=== PATIENT | female | born 1940 ===

== ENCOUNTER 2016-07-02 14:21 | Inpatient (IN) | payer MEDICARE, MEDICAID ==
--- NOTE | 2016-07-02 15:58 | CT ---
PROCEDURE: CT HEAD WITHOUT CONTRAST. HISTORY: r/o ICH COMPARISON: Comparison is made to the previous study dated 03/03/2016 TECHNIQUE: Axial computed tomography images were obtained through the head/brain without intravenous contrast. This CT exam was performed using one or more of the following dose reduction techniques: Automated exposure control, adjustment of the mA and/or kv according to patient size, and/or use of iterative reconstruction technique. Radiation dose: Total exam DLP = 719.96 mGy-cm. FINDINGS: HEMORRHAGE: No intracranial hemorrhage. BRAIN: No mass effect or edema. Mild atrophy and chronic microvascular white matter ischemic disease are again noted. VENTRICLES: Unremarkable. No hydrocephalus. CALVARIUM: Unremarkable. PARANASAL SINUSES: Unremarkable as visualized. No significant inflammatory changes. MASTOID AIR CELLS: Unremarkable as visualized. No inflammatory changes. OTHER FINDINGS: None. IMPRESSION: No evidence of acute intracranial hemorrhage intracranial mass effect or midline shift. No significant interval change compared to the previous exam.
[2016-07-02 16:04] LABS: BASO # 0.1 K/uL (0.0-0.2); BASO % 0.4 % (0.0-2.0); EOS # 0.1 K/uL (0.0-0.7); EOS % 0.4 % (0.0-4.0); HEMATOCRIT 29.7 % (34.0-47.0); LYMPH # 3.6 K/uL (1.0-4.3); LYMPH % 26.3 % (20.0-40.0); MEAN CELL VOLUME 79.7 fL (81.0-99.0); MEAN CORPUSCULAR HEMOGLOBIN 25.5 pg (27.0-31.0); MEAN PLATELET VOLUME 7.7 fL (7.2-11.7); MONO # 1.7 K/uL (0.0-0.8); MONO % 12.4 % (0.0-10.0); RED CELL DISTRIBUTION WIDTH 16.9 % (11.5-14.5); WHITE BLOOD COUNT 13.7 K/uL (4.8-10.8)
[2016-07-02 16:07] LABS: CHLORIDE 100 mmol/L (98-107); POTASSIUM 4.1 mmol/L (3.6-5.2); SODIUM 139 mmol/L (132-148)
[2016-07-02 16:09] LABS: GFR AFRICAN-AMERICAN > 60
[2016-07-02 16:10] LABS: ALB/GLOB RATIO 1.2 (1.0-2.1); ALKALINE PHOSPHATASE 83 U/L (38-126); ALT/SGPT 25 U/L (9-52); AST/SGOT 28 U/L (14-36); BILIRUBIN,TOTAL 0.5 mg/dL (0.2-1.3); BLOOD UREA NITROGEN 14 mg/dL (7-17); CARBON DIOXIDE 22 mmol/L (22-30); GLUCOSE,RANDOM 120 mg/dL (65-105); TOTAL PROTEIN 6.6 g/dL (6.3-8.3)
[2016-07-02 16:11] LABS: CALCIUM 8.6 mg/dl (8.6-10.4)
--- NOTE | 2016-07-02 17:14 | C.PDOC ---
History Of Present Illness The patient, a 76 y/o female, presents to the ED via EMS after experiencing an episode of dizziness earlier today. According to family, patient was in her fdc and was walking to the bathroom when she became dizzy and struck her head against the bathroom wall. According to family member, patient had a temperature of 102+ while she was in her fdc and an anti-pyretic was attempted to be given. Patient also also been complaining of a mild cough since yesterday. Patient denies fall to the ground, LOC, chest pain, shortness of breath, and dysuria. Information obtain via family member because patient has baseline dementia and is a poor historian. Chief Complaint (Nursing): Weakness/Neurological Deficit History Per: EMS, Family History/Exam Limitations: clinical condition (baseline dementia ), other (poor historian ) Onset/Duration Of Symptoms: Hrs Current Symptoms Are (Timing): Still Present Activity At Onset Of Symptoms: Standing Associated Symptoms Preceding Syncopal Episode: No Predromal Symptoms (Sudden Onset) Fall Associated With With Symptoms: No Injury As Result Of Fall Additional History Per: EMS, Family, Group Home Past Medical History Reviewed: Historical Data, Nursing Documentation, Vital Signs Vital Signs: Last Vital Signs Temp 99.4 F 07/02/16 18:11 Pulse 84 07/02/16 18:11 Resp 18 07/02/16 18:11 BP 111/68 07/02/16 18:11 Pulse Ox 96 07/02/16 18:16 - Medical History PMH: Anemia, Anxiety, Asthma, COPD, Deep Vein Thrombosis, HTN, Hypercholesterolemia Surgical History: Appendectomy, Cholecystectomy Family History: States: No Known Family Hx - Social History Hx Alcohol Use: No Hx Substance Use: No - Immunization History Hx Tetanus Toxoid Vaccination: No Hx Influenza Vaccination: No Hx Pneumococcal Vaccination: No Review Of Systems Except As Marked, All Systems Reviewed And Found Negative. Cardiovascular: Negative for: Chest Pain Respiratory: Positive for: Cough (mild ) Genitourinary: Negative for: Dysuria Neurological: Positive for: Dizziness. Negative for: Other (no LOC ) Physical Exam - Physical Exam Appears: Non-toxic, No Acute Distress Skin: Normal Color, Warm, Dry Head: Atraumatic, Normacephalic Eye(s): bilateral: Normal Inspection Oral Mucosa: Moist Neck: Normal ROM, Supple Chest: Symmetrical, No Deformity, No Tenderness Cardiovascular: Rhythm Regular, No Murmur Respiratory: Wheezing (mild, bilaterally ), Other (+coarse sounds in right middle lobe ) Gastrointestinal/Abdominal: Soft, No Tenderness, No Guarding, No Rebound Back: Normal Inspection, No Vertebral Tenderness, No Paraspinal Tenderness Extremity: Normal ROM, Capillary Refill (less than 2 seconds), Swelling (trace edema to b/l lower extremities ) Pulses: Left Dorsalis Pedis: Normal, Right Dorsalis Pedis: Normal Neurological/Psych: Oriented x3, Normal Speech, Normal Cognition Gait: Steady ED Course And Treatment - Laboratory Results Result Diagrams: 07/02/16 15:48 07/02/16 15:48 ECG: Interpreted By Me, Viewed By Me ECG Rhythm: Sinus Rhythm Interpretation Of ECG: Sinus Rhythm at rate 77 BPM. Normal axis and intervals. Rate From EC O2 Sat by Pulse Oximetry: 96 (on RA) Pulse Ox Interpretation: Normal - Other Rad CXR X-Ray: Interpreted by Me, Viewed By Me, Read By Radiologist Interpretation: Accession No. : [id number]. Patient Name / ID : SEAN ANGEL / [id number]. Exam Date : 07/02/2016 14:58:12 ( Approved ). Study Comment : Sex / Age : F / 76Y. Creator : Jose Cruz Mukherjee. Dictator : Jose Cruz Mukherjee. Hole Digger : Wet Roaster : Jose Cruz Mukherjee. Approver2 : Report Date : 07/02/2016 17:54:09. My Comment : . PROCEDURE: CHEST RADIOGRAPH, 1 VIEW. HISTORY: chest pain. COMPARISON: Comparison is made to the previous study dated 03/03/2016. FINDINGS: LUNGS: Focal opacity seen at the right lung base appears more conspicuous compared to the previous exam. Mild-to- moderate elevation of the right hemidiaphragm. PLEURA: No pneumothorax or pleural fluid seen. CARDIOVASCULAR: Normal. OSSEOUS STRUCTURES: No significant abnormalities. VISUALIZED UPPER ABDOMEN: Normal. OTHER FINDINGS: None. IMPRESSION: Focal opacity at the right lung base. Elevation of the right hemidiaphragm. If clinically warranted further assessment by CT may be obtained. - CT Scan/US CT Head Other Rad Studies (CT/US): Interpreted By Me, Read By Radiologist, Radiology Report Reviewed CT/US Interpretation: Accession No. : [id number]. Patient Name / ID : SEAN ANGEL / [id number]. Exam Date : 07/02/2016 15:42:52 ( Approved ). Study Comment : Sex / Age : F / 76Y. Creator : Jose Cruz Mukherjee. Dictator : Jose Cruz Mukherjee. Hole Digger : Wet Roaster : Jose Cruz Mukherjee. Approver2 : Report Date : 07/02/2016 15:57:24. My Comment : . PROCEDURE: CT HEAD WITHOUT CONTRAST. HISTORY: r/o ICH. COMPARISON: Comparison is made to the previous study dated 03/03/2016. TECHNIQUE: Axial computed tomography images were obtained through the head/brain without intravenous contrast. This CT exam was performed using one or more of the following dose reduction techniques : Automated exposure control, adjustment of the mA and/or kv according to patient size, and/or use of iterative reconstruction technique. Radiation dose : Total exam DLP = 719.96 mGy-cm. FINDINGS: HEMORRHAGE: No intracranial hemorrhage. BRAIN: No mass effect or edema. Mild atrophy and chronic microvascular white matter ischemic disease are again noted. VENTRICLES: Unremarkable. No hydrocephalus. CALVARIUM: Unremarkable. PARANASAL SINUSES: Unremarkable as visualized. No significant inflammatory changes. MASTOID AIR CELLS: Unremarkable as visualized. No inflammatory changes. OTHER FINDINGS: None. IMPRESSION: No evidence of acute intracranial hemorrhage intracranial mass effect or midline shift. No significant interval change compared to the previous exam. Progress Note: labs, CT Head, EKG, and CXR were ordered and reviewed. Medical Decision Making Medical Decision Making: Impression: 76 y/o female with dizziness Differential Diagnosis includes but is not limited to: near-syncope vs possible pneumonia Plan: * labs * CT Head * CXR * EKG * reassess and disposition Progress Notes: labs, CT Head, EKG, and CXR were ordered and reviewed. 17:[address] Clark. Disposition - Disposition Disposition: HOSPITALIZED Disposition Time: 17:30 Condition: FAIR - Clinical Impression Clinical Impression: Pre-syncope, Pneumonia - Scribe Statement The provider has reviewed the documentation as recorded by the Scribe (Brenna Land) Provider Attestation: All medical record entries made by the Scribe were at my direction and personally dictated by me. I have reviewed the chart and agree that the record accurately reflects my personal performance of the history, physical exam, medical decision making, and the department course for this patient. I have also personally directed, reviewed, and agree with the discharge instructions and disposition.
[2016-07-02 17:31] LABS: RBC URINE 2 /hpf (0-3); URINE BACTERIA MANY (<OCC); URINE BILIRUBIN NEGATIVE (NEGATIVE); URINE BLOOD NEGATIVE (NEGATIVE); URINE COLOR Yellow (YELLOW); URINE GLUCOSE (UA) NORMAL (Normal); URINE KETONE NEGATIVE (NEGATIVE); URINE LEUKOCYTE ESTERASE TRACE Leu/uL (Negative); URINE PROTEIN 1+ mg/dL (NEGATIVE); URINE UROBILINOGEN NORMAL mg/dL (0.2-1.0); WBC URINE 8 /hpf (0-5)
[2016-07-02] MEDS ORDERED: Piperacillin/Tazobact 3.375 GM in Sodium Chloride 100 ML IVPB STA (17:31)
--- NOTE | 2016-07-02 17:55 | RAD ---
PROCEDURE: CHEST RADIOGRAPH, 1 VIEW HISTORY: chest pain COMPARISON: Comparison is made to the previous study dated 03/03/2016 FINDINGS: LUNGS: Focal opacity seen at the right lung base appears more conspicuous compared to the previous exam. [id number] elevation of the right hemidiaphragm. PLEURA: No pneumothorax or pleural fluid seen. CARDIOVASCULAR: Normal. OSSEOUS STRUCTURES: No significant abnormalities. VISUALIZED UPPER ABDOMEN: Normal. OTHER FINDINGS: None. IMPRESSION: Focal opacity at the right lung base. Elevation of the right hemidiaphragm. If clinically warranted further assessment by CT may be obtained.
[2016-07-02 18:11] LABS: ABG ALLEN TEST POS; DRAW SITE RRA
--- NOTE | 2016-07-02 18:42 | CP.PCM.HP ---
<Axel Jon - Last Filed: 07/02/16 19:41> History of Present Illness - History of Present Illness History of Present Illness: CC: Dizzy and Fell" HPI: Patient is a 76 year old Yakut speaking patient with a history of HTN, COPD, HTN, and DM comes to the ED after falling and hitting her on the wall. Patient was interviewed through a paint factory worker. She was going to the bathroom when she felt dizzy and hit her head on the side of the wall. She has been complaining of worsening productive cough with green sputum, fever, chills, and chest pain. She says she has been having chronic chest pain for many years but that over the past few days she has been having chest congestion and cough with fever and chills. Patient comes from a alf and according to her daughter is able to ambulate on her own with assistance. She denies changes in vision, hearing, nausea, vomiting, diarrhea, dysuria, palpitations, shortness of breath, lower extremity swelling but admits o chronic joint pain. PMH: see above PSH: appendectomy, cholestectomy PFH: patient denies SH: Lives at [facility], former smoker, denies etoh, or illicit drug use. Allergies: NKDA PMD: Frank Present on Admission - Present on Admission Any Indicators Present on Admission: No History of DVT/PE: Yes History of Uncontrolled Diabetes: No Urinary Catheter: No Decubitus Ulcer Present: No Review of Systems - Review of Systems All systems: reviewed and no additional remarkable complaints except - Constitutional Constitutional: Chills, Fever - EENT Eyes: absent: Change in Vision Ears: Disequilibrium, Dizziness - Cardiovascular Cardiovascular: Chest Pain (reproducible with palpation), Dyspnea. absent: Palpitations - Respiratory Respiratory: Cough, Dyspnea, Chest Congestion, Pain with Coughing. absent: Wheezing - Gastrointestinal Gastrointestinal: absent: Abdominal Pain, Constipation, Diarrhea, Vomiting - Genitourinary Genitourinary: absent: Dysuria - Musculoskeletal Musculoskeletal: absent: Numbness, Tingling - Integumentary Integumentary: absent: Swelling - Neurological Neurological: Disequilibrium, Dizziness, Syncope, Vertigo. absent: Numbness, Focal Weakness, Headaches - Psychiatric Psychiatric: absent: Anxiety - Endocrine Endocrine: absent: Fatigue, Palpitations Past Patient History - Infectious Disease Hx of Infectious Diseases: None - Past Medical History & Family History Past Medical History?: Yes - Past Social History Smoking Status: Never Smoked - CARDIAC Hx Hypercholesterolemia: Yes Hx Hypertension: Yes - PULMONARY Hx Asthma: Yes Hx Chronic Obstructive Pulmonary Disease (COPD): Yes - NEUROLOGICAL Hx Dizziness: Yes - ENDOCRINE/METABOLIC Hx Diabetes Mellitus Type 2: Yes - HEMATOLOGICAL/ONCOLOGICAL Hx Anemia: Yes - MUSCULOSKELETAL/RHEUMATOLOGICAL Hx Falls: Yes Hx Gout: Yes Other/Comment: hx of stress fracture. - GASTROINTESTINAL Hx Gastroesophageal Reflux: Yes - PSYCHIATRIC Hx Anxiety: Yes Hx Substance Use: No - SURGICAL HISTORY Hx Appendectomy: Yes Hx Cholecystectomy: Yes - ANESTHESIA Hx Anesthesia: Yes Hx Anesthesia Reactions: No Hx Malignant Hyperthermia: No Meds Allergies/Adverse Reactions: Allergies Allergy/AdvReac Type Severity Reaction Status Date / Time No Known Allergies Allergy Unverified 03/03/16 02:28 Physical Exam - Constitutional Appears: Non-toxic, No Acute Distress - Head Exam Head Exam: ATRAUMATIC, NORMAL INSPECTION, NORMOCEPHALIC - Eye Exam Eye Exam: Normal appearance, PERRL Pupil Exam: NORMAL ACCOMODATION - ENT Exam ENT Exam: Normal Exam - Neck Exam Neck exam: Positive for: Normal Inspection - Respiratory Exam Respiratory Exam: Clear to Auscultation Bilateral, Rales. absent: Rhonchi, Wheezes - Cardiovascular Exam Cardiovascular Exam: REGULAR RHYTHM, RRR, +S1, +S2. absent: Gallop, Rubs - GI/Abdominal Exam GI & Abdominal Exam: Normal Bowel Sounds. absent: Guarding, Soft, Tenderness - Extremities Exam Extremities exam: Positive for: normal inspection - Back Exam Back exam: NORMAL INSPECTION - Psychiatric Exam Psychiatric exam: Normal Affect, Normal Mood - Skin Skin Exam: Normal Color, Warm Results - Vital Signs Recent Vital Signs: Last Vital Signs Temp 99.4 F 07/02/16 18:11 Pulse 84 07/02/16 18:11 Resp 18 07/02/16 18:11 BP 111/68 07/02/16 18:11 Pulse Ox 96 07/02/16 18:16 - Labs Result Diagrams: 07/02/16 15:48 07/02/16 15:48 Labs: Laboratory Results - last 24 hr 07/02/16 18:05 Puncture Site Rra pCO2 31 L pO2 82 HCO3 25.2 ABG pH 7.48 H ABG Total CO2 24.1 ABG O2 Saturation 98.6 H ABG Base Excess 0.4 Jhon Test Pos ABG Potassium 3.5 L A-a O2 Difference 29.0 Respiratory Index 0.4 Sodium 140.0 Chloride 113.0 H Glucose 133 H Lactate 0.5 L FiO2 21.0 Arterial Blood Potassium 3.5 L Assessment & Plan (1) Pneumonia Assessment and Plan: CXR in the ED shows a right focal opacity see emr for full read on x:ray. She also has Luecocytosis WBC of 14.7 with left shift no bandemia. Patient admitted to tele/inpatient She received Zosyn and Vanc in the ED, will continue Vanc 1 gram q12 and Zoysn 3.375gm Q5H IVPB. Dr. Jasmine consulted for ID, she was notified of the consult and will need to follow up on her recommendations or orders. Blood, urine, and sputum culture will need to be followe up on. Duoneb 3ml with Mucomyst every q6h, continue home Singular 10mg HS. Status: Acute (2) Near syncope Assessment and Plan: CT of the head is negative, patient put on fall precuations. Status: Acute (3) CHF (congestive heart failure) Assessment and Plan: Patient's BNP is elevated, will order Echo. Lasix 20mg IVP daily. I& monitor continuos, daily weight measurement Status: Suspected (4) Diabetes mellitus Assessment and Plan: Accuc checks ACHS with sliding scale medium protocol ordered. Status: Chronic (5) Hyperlipidemia Assessment and Plan: Crestor 10mg HS, followup lipid panel. Status: Chronic (6) History of DVT of lower extremity Assessment and Plan: Accoring to the records from the alf and patient's daughter patient at one time was one Xarelto for DVT however she is not Xarelto currently. Neither staff at alf or daughter knows why she was taken off Xarelto. Ordered lower extremity doppler. Status: Chronic (7) HTN (hypertension) Assessment and Plan: Coreg 25mg bid. Status: Acute (8) Prophylactic measure Assessment and Plan: Pepcid 20mg bid and Heparin 5000 units SC q8h Hold SCDs due to history of DVTs. Status: Acute <Charles Cox M - Last Filed: 07/06/16 14:41> Results - Vital Signs Recent Vital Signs: Last Vital Signs Temp 98.1 F 07/06/16 11:00 Pulse 63 07/06/16 11:00 Resp 20 07/06/16 11:00 BP 119/66 07/06/16 11:00 Pulse Ox 98 07/06/16 11:00 - Labs Result Diagrams: 07/06/16 07:51 07/06/16 07:51 Labs: Laboratory Results - last 24 hr 07/05/16 07/05/16 07/06/16 16:23 20:59 06:14 WBC RBC Hgb Hct MCV MCH MCHC RDW Plt Count MPV Neut % (Auto) Lymph % (Auto) [place] % (Auto) Eos % (Auto) Baso % (Auto) Neut # Lymph # [place] # Eos # Baso # PT INR Sodium Potassium Chloride Carbon Dioxide Anion Gap BUN Creatinine Est GFR ( Amer) Est GFR (Non-Af Amer) POC Glucose (mg/dL) 97 148 H 117 H Random Glucose Calcium Phosphorus Magnesium Total Bilirubin AST ALT Alkaline Phosphatase Total Protein Albumin Globulin Albumin/Globulin Ratio 07/06/16 07/06/16 07:51 11:57 WBC 7.0 RBC 3.78 L Hgb 9.9 L Hct 29.8 L MCV 78.9 L MCH 26.2 L MCHC 33.3 RDW 16.5 H Plt Count 326 MPV 7.8 Neut % (Auto) 41.4 L Lymph % (Auto) 43.8 H [place] % (Auto) 10.3 H Eos % (Auto) 4.1 H Baso % (Auto) 0.4 Neut # 2.9 Lymph # 3.1 [place] # 0.7 Eos # 0.3 Baso # 0.0 PT 13.6 H INR 1.2 Sodium 142 Potassium 3.8 Chloride 102 Carbon Dioxide 22 Anion Gap 21 H BUN 13 Creatinine 1.3 H Est GFR ( Amer) 48 Est GFR (Non-Af Amer) 40 POC Glucose (mg/dL) 145 H Random Glucose 125 H Calcium 8.9 Phosphorus 3.9 Magnesium 2.0 Total Bilirubin 0.7 AST 36 ALT 33 Alkaline Phosphatase 84 Total Protein 7.4 Albumin 4.0 Globulin 3.3 Albumin/Globulin Ratio 1.2 Attending/Attestation - Attestation I have personally seen and examined this patient.: Yes I have fully participated in the care of the patient.: Yes I have reviewed all pertinent clinical information: Yes Notes (Text): 07/06/16 14:41 Patient was seen and examined at bedside with the resident This is a late computer entry Patient will be admitted for near-syncope Rule out underlying infectious etiology I discussed the plan of care with the resident and agree with the above history and physical and assessment/plan by the resident.
[2016-07-02] MEDS: Sodium Chloride 0.9% 1,000 ML IV SCH (19:00)
[2016-07-02] MEDS: Albuterol-Ipratrop 3 mg / 0.5 (3 ml) UD INH SCH (20:50)
[2016-07-02] MEDS: Acetylcysteine 20% Inhal Soln (4ml) INH SCH (20:50)
[2016-07-02] MEDS ORDERED: Vancomycin 1 gm/NS 200 ml 200 ML IVPB SCH (21:00)
[2016-07-02] MEDS: (Novolin R) Insulin Human Regular 100 units/ml vial SC SCH (22:00)
[2016-07-03] MEDS: Piperacill/Tazo 3.375gm in Dex 50 ML IVPB SCH ×4 (00:52→17:22)
[2016-07-03] MEDS: Sodium Chloride 0.9% 1,000 ML IV SCH ×2 (01:45→15:05)
[2016-07-03] MEDS: Albuterol-Ipratrop 3 mg / 0.5 (3 ml) UD INH SCH ×4 (01:57→19:21)
[2016-07-03] MEDS: Acetylcysteine 20% Inhal Soln (4ml) INH SCH ×4 (01:57→19:21)
[2016-07-03] MEDS ORDERED: Vancomycin 1 gm/NS 200 ml 200 ML IVPB SCH (05:30)
[2016-07-03 07:14] LABS: BASO % 0.4 % (0.0-2.0); EOS # 0.1 K/uL (0.0-0.7); EOS % 1.3 % (0.0-4.0); HEMATOCRIT 27.4 % (34.0-47.0); LYMPH # 2.3 K/uL (1.0-4.3); LYMPH % 24.7 % (20.0-40.0); MEAN CELL VOLUME 80.6 fL (81.0-99.0); MEAN CORPUSCULAR HEMOGLOBIN 26.3 pg (27.0-31.0); MEAN CORPUSCULAR HGB CONC 32.6 g/dL (33.0-37.0); MEAN PLATELET VOLUME 7.7 fL (7.2-11.7); MONO # 1.1 K/uL (0.0-0.8); MONO % 11.4 % (0.0-10.0); RED CELL DISTRIBUTION WIDTH 16.8 % (11.5-14.5); WHITE BLOOD COUNT 9.3 K/uL (4.8-10.8)
[2016-07-03 07:35] LABS: CHLORIDE 106 mmol/L (98-107); POTASSIUM 3.2 mmol/L (3.6-5.2); SODIUM 139 mmol/L (132-148)
[2016-07-03 07:37] LABS: AST/SGOT 20 U/L (14-36); BILIRUBIN,TOTAL 0.4 mg/dL (0.2-1.3); CARBON DIOXIDE 22 mmol/L (22-30); CHOLESTEROL 65 mg/dL (0-199); GFR AFRICAN-AMERICAN > 60; TOTAL PROTEIN 5.4 g/dL (6.3-8.3)
[2016-07-03 07:38] LABS: ALKALINE PHOSPHATASE 65 U/L (38-126); ALT/SGPT 22 U/L (9-52); BLOOD UREA NITROGEN 12 mg/dL (7-17); CALCIUM 7.4 mg/dl (8.6-10.4); GLUCOSE,RANDOM 101 mg/dL (65-105)
[2016-07-03] MEDS: (Novolin R) Insulin Human Regular 100 units/ml vial SC SCH ×4 (07:59→22:12)
--- NOTE | 2016-07-03 09:16 | CP.PCM.PN ---
<Yeyo Diez - Last Filed: 07/03/16 20:43> Subjective - Date & Time of Evaluation Date of Evaluation: 07/03/16 Time of Evaluation: 07:50 - Subjective Subjective: PGY1 Medicine Note Patient seen and examined at bedside. Patient with mild temperature overnight. Will monitor. Currently denies changes in vision, hearing, nausea, vomiting, diarrhea, dysuria, palpitations, shortness of breath, or lower extremity swelling. Admits to chronic joint pain. Objective - Vital Signs/Intake and Output Vital Signs (last 24 hours): Temp Pulse Resp BP Pulse Ox 100 F H 75 18 110/41 L 97 07/03/16 07:20 07/03/16 08:51 07/03/16 07:20 07/03/16 07:20 07/03/16 07:20 - Medications Medications: Current Medications Acetaminophen (Tylenol 325mg Tab) 650 mg PO Q6 PRN PRN Reason: Pain, severe (8-10) Acetylcysteine (Acetylcysteine 20%) 4 ml INH RQ6 [facility] Last Admin: 07/03/16 07:56 Dose: Not Given Albuterol/Ipratropium (Duoneb 3 Mg/0.5 Mg (3 Ml) Ud) 3 ml INH RQ6 [facility] Last Admin: 07/03/16 07:57 Dose: Not Given Carvedilol (Coreg) 25 mg PO BID [facility] Last Admin: 07/02/16 18:50 Dose: 25 mg Docusate Sodium (Colace) 100 mg PO BID PRN PRN Reason: Constipation Furosemide (Lasix) 20 mg IVP DAILY [facility] Heparin Sodium (Porcine) (Heparin) 5,000 units SC Q8 [facility] Last Admin: 07/03/16 06:21 Dose: 5,000 units Sodium Chloride (Sodium Chloride 0.9%) 1,000 mls @ 125 mls/hr IV .Q8H [facility] Last Admin: 07/03/16 01:45 Dose: Not Given Piperacillin Sod/Tazobactam Sod (Zosyn 3.375 Gm Iv Premix) 50 mls @ 100 mls/hr IVPB Q6H [facility] Last Admin: 07/03/16 06:24 Dose: 100 mls/hr Azithromycin 500 mg/ Sodium (Chloride) 250 mls @ 167 mls/hr IVPB Q24H [facility] Insulin Human Regular (Novolin R) 0 unit SC ACHS [facility] PRN Reason: Protocol Last Admin: 07/03/16 07:59 Dose: Not Given Montelukast Sodium (Singulair) 10 mg PO HS [facility] Last Admin: 07/02/16 22:31 Dose: 10 mg Pantoprazole Sodium (Protonix Ec Tab) 40 mg PO DAILY [facility] Potassium Chloride (K-Dur 20 Meq Er Tab) 40 meq PO Q5H [facility] Stop: 07/03/16 14:01 Rosuvastatin Calcium (Crestor) 10 mg PO HS [facility] Last Admin: 07/02/16 22:30 Dose: 10 mg - Labs Labs: 07/03/16 06:46 07/03/16 06:46 - Additional Findings Additional findings: - Constitutional Appears: Non-toxic, No Acute Distress - Head Exam Head Exam: ATRAUMATIC, NORMAL INSPECTION, NORMOCEPHALIC - Eye Exam Eye Exam: Normal appearance, PERRL Pupil Exam: NORMAL ACCOMODATION - ENT Exam ENT Exam: Normal Exam - Neck Exam Neck exam: Positive for: Normal Inspection - Respiratory Exam Respiratory Exam: Clear to Auscultation Bilateral, Rales. absent: Rhonchi, Wheezes - Cardiovascular Exam Cardiovascular Exam: REGULAR RHYTHM, RRR, +S1, +S2. absent: Gallop, Rubs - GI/Abdominal Exam GI & Abdominal Exam: Normal Bowel Sounds. absent: Guarding, Soft, Tenderness - Extremities Exam Extremities exam: Positive for: normal inspection - Back Exam Back exam: NORMAL INSPECTION - Psychiatric Exam Psychiatric exam: Normal Affect, Normal Mood - Skin Skin Exam: Normal Color, Warm Assessment and Plan - Assessment and Plan (Free Text) Assessment: (1) Pneumonia Assessment and Plan: 07/03: f/u Chest CT (pending read) 4/3: repeat CXR shows elevated right hemidiaphragm. -CXR in the ED shows a right focal opacity see emr for full read on x:ray She also has Luecocytosis WBC of 14.7 with left shift no bandemia. Patient admitted to tele/inpatient She received Zosyn and Vanc in the ED, will continue Vanc 1 gram q12 and Zoysn 3.375gm Q5H IVPB. Dr. Jasmine consulted for ID, she was notified of the consult and will need to follow up on her recommendations or orders. Blood, urine, and sputum culture will need to be followe up on. Duoneb 3ml with Mucomyst every q6h, continue home Singular 10mg HS. Status: Acute (2) Near syncope Assessment and Plan: CT of the head is negative, patient put on fall precuations. Status: Acute (3) CHF (congestive heart failure) Assessment and Plan: 07/03: f/u Echo, pending read Patient's BNP is elevated, will order Echo. Lasix 20mg IVP daily. I& monitor continuos, daily weight measurement Status: Suspected (4) Diabetes mellitus Assessment and Plan: Accuc checks ACHS with sliding scale medium protocol ordered. Status: Chronic (5) Hyperlipidemia Assessment and Plan: 07/03: Triglyc 86; Cholest 65; LDL <30; HDL 23 L Crestor 10mg HS, followup lipid panel. Status: Chronic (6) History of DVT of lower extremity Assessment and Plan: 07/03: f/u LE duplex (pending read) Accoring to the records from the correction and patient's daughter patient at one time was one Xarelto for DVT however she is not Xarelto currently. Neither staff at correction or daughter knows why she was taken off Xarelto. Status: Chronic (7) HTN (hypertension) Assessment and Plan: Coreg 25mg bid. Status: Acute (8) Prophylactic measure Assessment and Plan: Pepcid 20mg bid and Heparin 5000 units SC q8h Hold SCDs due to history of DVTs. Status: Acute <Yeyo Hendrickson - Last Filed: 07/04/16 07:47> Objective - Vital Signs/Intake and Output Vital Signs (last 24 hours): Temp Pulse Resp BP Pulse Ox 98 F 73 20 129/66 96 07/04/16 05:30 07/04/16 05:30 07/04/16 05:30 07/04/16 05:30 07/04/16 05:30 Intake and Output: 07/04/16 07/04/16 06:59 18:59 Intake Total 1000 Balance 1000 - Medications Medications: Current Medications Acetaminophen (Tylenol 325mg Tab) 650 mg PO Q6 PRN PRN Reason: Pain, severe (8-10) Last Admin: 07/04/16 05:45 Dose: 650 mg Acetylcysteine (Acetylcysteine 20%) 4 ml INH RQ6 [facility] Last Admin: 07/04/16 01:23 Dose: Not Given Albuterol/Ipratropium (Duoneb 3 Mg/0.5 Mg (3 Ml) Ud) 3 ml INH RQ6 [facility] Last Admin: 07/04/16 01:23 Dose: Not Given Carvedilol (Coreg) 25 mg PO BID [facility] Last Admin: 07/03/16 17:21 Dose: 25 mg Docusate Sodium (Colace) 100 mg PO BID PRN PRN Reason: Constipation Furosemide (Lasix) 20 mg IVP DAILY [facility] Last Admin: 07/03/16 11:21 Dose: 20 mg Guaifenesin (Robitussin) 100 mg PO Q6H PRN PRN Reason: Cough Last Admin: 07/03/16 22:12 Dose: 100 mg Heparin Sodium (Porcine) (Heparin) 5,000 units SC Q8 [facility] Last Admin: 07/04/16 05:46 Dose: 5,000 units Piperacillin Sod/Tazobactam Sod (Zosyn 3.375 Gm Iv Premix) 50 mls @ 100 mls/hr IVPB Q6H [facility] Last Admin: 07/04/16 05:46 Dose: 100 mls/hr Azithromycin 500 mg/ Sodium (Chloride) 250 mls @ 167 mls/hr IVPB Q24H [facility] Last Admin: 07/03/16 11:22 Dose: 167 mls/hr Sodium Chloride (Sodium Chloride 0.9%) 1,000 mls @ 50 mls/hr IV .Q20H [facility] Last Admin: 07/03/16 16:00 Dose: 50 mls/hr Insulin Human Regular (Novolin R) 0 unit SC ACHS [facility] PRN Reason: Protocol Last Admin: 07/03/16 22:12 Dose: Not Given Montelukast Sodium (Singulair) 10 mg PO HS [facility] Last Admin: 07/03/16 22:11 Dose: 10 mg Oseltamivir Phosphate (Tamiflu Cap) 75 mg PO BID [facility] Stop: 07/08/16 23:04 Pantoprazole Sodium (Protonix Ec Tab) 40 mg PO DAILY [facility] Last Admin: 07/03/16 11:20 Dose: 40 mg Rosuvastatin Calcium (Crestor) 10 mg PO HS [facility] Last Admin: 07/03/16 22:11 Dose: 10 mg - Labs Labs: 07/03/16 06:46 07/03/16 06:46 Attending/Attestation - Attestation I have personally seen and examined this patient.: Yes I have fully participated in the care of the patient.: Yes I have reviewed all pertinent clinical information, including history, physical exam and plan: Yes Notes (Text): 07/04/16 07:45 Medical Attending: Jesse was seen and examined by me. She was sleeping but woke up and was cooperative during the the exam. Agree with the above note by the resident. Reviewed the CXRAY, there is a persistent mass on the right lower lobe almost as if sitting ontop the diaghram. This maybe infectious etiology such as pneumonia since her WBC is decreasing with abx being given. Will check CT of the chest without contrast. thank you Yeyo Hendrickson
[2016-07-03] MEDS: Pantoprazole 40 mg EC Tab PO SCH (11:20)
[2016-07-03] MEDS: Potassium Chloride 20 mEq ER Tab PO SCH ×2 (11:21→15:05)
[2016-07-03] MEDS: Azithromycin 500 MG in Sodium Chloride 0.9% 250 ML IVPB SCH (11:22)
--- NOTE | 2016-07-03 12:48 | RAD ---
HISTORY: congestion COMPARISON: 07/02/2016 FINDINGS: LUNGS: Opacity at right base, possible atelectasis versus infiltrate. No significant change. PLEURA: Markedly elevated right hemidiaphragm, unchanged. Hazy opacity at right costophrenic angle may reflect pleural effusion. No left pleural effusion. CARDIOVASCULAR: Normal. OSSEOUS STRUCTURES: No significant abnormalities. VISUALIZED UPPER ABDOMEN: Normal. OTHER FINDINGS: None. IMPRESSION: Elevated right hemidiaphragm. Possible atelectasis versus infiltrate at right base, S cephalad to elevated hemidiaphragm. Possible small right pleural effusion.
--- NOTE | 2016-07-03 15:46 | CP.PCM.CON ---
History of Present Illness - History of Present Illness History of Present Illness: dictated Past Patient History - Infectious Disease Hx of Infectious Diseases: None - Past Medical History & Family History Past Medical History?: Yes - Past Social History Smoking Status: Never Smoked - CARDIAC Hx Hypercholesterolemia: Yes Hx Hypertension: Yes - PULMONARY Hx Asthma: Yes Hx Chronic Obstructive Pulmonary Disease (COPD): Yes - NEUROLOGICAL Hx Dizziness: Yes - HEENT Hx HEENT Problems: No - RENAL Hx Chronic Kidney Disease: No - ENDOCRINE/METABOLIC Hx Diabetes Mellitus Type 2: Yes - HEMATOLOGICAL/ONCOLOGICAL Hx Anemia: Yes - INTEGUMENTARY Hx Dermatological Problems: No - MUSCULOSKELETAL/RHEUMATOLOGICAL Hx Falls: Yes Hx Gout: Yes Other/Comment: hx of stress fracture. - GASTROINTESTINAL Hx Gastroesophageal Reflux: Yes - GENITOURINARY/GYNECOLOGICAL Hx Genitourinary Disorders: No - PSYCHIATRIC Hx Anxiety: Yes Hx Substance Use: No - SURGICAL HISTORY Hx Appendectomy: Yes Hx Cholecystectomy: Yes - ANESTHESIA Hx Anesthesia: Yes Hx Anesthesia Reactions: No Hx Malignant Hyperthermia: No Meds Allergies/Adverse Reactions: Allergies Allergy/AdvReac Type Severity Reaction Status Date / Time No Known Allergies Allergy Unverified 03/03/16 02:28 - Medications Medications: Current Medications Acetaminophen (Tylenol 325mg Tab) 650 mg PO Q6 PRN PRN Reason: Pain, severe (8-10) Acetylcysteine (Acetylcysteine 20%) 4 ml INH RQ6 [facility] Last Admin: 07/03/16 14:22 Dose: Not Given Albuterol/Ipratropium (Duoneb 3 Mg/0.5 Mg (3 Ml) Ud) 3 ml INH RQ6 [facility] Last Admin: 07/03/16 14:22 Dose: Not Given Carvedilol (Coreg) 25 mg PO BID [facility] Last Admin: 07/03/16 11:21 Dose: 25 mg Docusate Sodium (Colace) 100 mg PO BID PRN PRN Reason: Constipation Furosemide (Lasix) 20 mg IVP DAILY [facility] Last Admin: 07/03/16 11:21 Dose: 20 mg Heparin Sodium (Porcine) (Heparin) 5,000 units SC Q8 [facility] Last Admin: 07/03/16 14:46 Dose: 5,000 units Sodium Chloride (Sodium Chloride 0.9%) 1,000 mls @ 125 mls/hr IV .Q8H [facility] Last Admin: 07/03/16 15:05 Dose: 125 mls/hr Piperacillin Sod/Tazobactam Sod (Zosyn 3.375 Gm Iv Premix) 50 mls @ 100 mls/hr IVPB Q6H [facility] Last Admin: 07/03/16 14:46 Dose: 100 mls/hr Azithromycin 500 mg/ Sodium (Chloride) 250 mls @ 167 mls/hr IVPB Q24H [facility] Last Admin: 07/03/16 11:22 Dose: 167 mls/hr Insulin Human Regular (Novolin R) 0 unit SC ACHS [facility] PRN Reason: Protocol Last Admin: 07/03/16 12:08 Dose: Not Given Montelukast Sodium (Singulair) 10 mg PO HS [facility] Last Admin: 07/02/16 22:31 Dose: 10 mg Pantoprazole Sodium (Protonix Ec Tab) 40 mg PO DAILY [facility] Last Admin: 07/03/16 11:20 Dose: 40 mg Potassium Chloride (Potassium Chloride Oral Soln) 40 meq PO ONCE ONE Stop: 07/03/16 18:01 Rosuvastatin Calcium (Crestor) 10 mg PO [facility] Last Admin: 07/02/16 22:30 Dose: 10 mg Results - Vital Signs Recent Vital Signs: Last Vital Signs Temp 100 F H 07/03/16 07:20 Pulse 75 07/03/16 08:51 Resp 18 07/03/16 07:20 BP 107/59 L 07/03/16 11:21 Pulse Ox 97 07/03/16 07:20 - Labs Result Diagrams: 07/03/16 06:46 07/03/16 06:46 Labs: Laboratory Results - last 24 hr 07/02/16 07/02/16 07/03/16 18:05 21:09 06:00 WBC RBC Hgb Hct MCV MCH MCHC RDW Plt Count MPV Neut % (Auto) Lymph % (Auto) [place] % (Auto) Eos % (Auto) Baso % (Auto) Neut # Lymph # [place] # Eos # Baso # Puncture Site Rra pCO2 31 L pO2 82 HCO3 25.2 ABG pH 7.48 H ABG Total CO2 24.1 ABG O2 Saturation 98.6 H ABG Base Excess 0.4 Jhon Test Pos ABG Potassium 3.5 L A-a O2 Difference 29.0 Respiratory Index 0.4 Sodium 140.0 Chloride 113.0 H Glucose 133 H Lactate 0.5 L FiO2 21.0 Potassium Carbon Dioxide Anion Gap BUN Creatinine Est GFR ( Amer) Est GFR (Non-Af Amer) POC Glucose (mg/dL) 132 H Random Glucose Hemoglobin A1c Calcium Total Bilirubin AST ALT Alkaline Phosphatase Total Protein Albumin Globulin Albumin/Globulin Ratio Triglycerides Cholesterol LDL Cholesterol Direct HDL Cholesterol Free T4 TSH 3rd Generation Arterial Blood Potassium 3.5 L Ur L.pneumophila Ag Negative Mycoplasma pneumon IgM 07/03/16 07/03/16 07/03/16 06:46 07:46 11:24 WBC 9.3 RBC 3.40 L Hgb 8.9 L Hct 27.4 L MCV 80.6 L MCH 26.3 L MCHC 32.6 L RDW 16.8 H Plt Count 250 MPV 7.7 Neut % (Auto) 62.2 Lymph % (Auto) 24.7 [place] % (Auto) 11.4 H Eos % (Auto) 1.3 Baso % (Auto) 0.4 Neut # 5.8 Lymph # 2.3 [place] # 1.1 H Eos # 0.1 Baso # 0.0 Puncture Site pCO2 pO2 HCO3 ABG pH ABG Total CO2 ABG O2 Saturation ABG Base Excess Jhon Test ABG Potassium A-a O2 Difference Respiratory Index Sodium 139 Chloride 106 Glucose Lactate FiO2 Potassium 3.2 L Carbon Dioxide 22 Anion Gap 14 BUN 12 Creatinine 1.0 Est GFR ( Amer) > 60 Est GFR (Non-Af Amer) 54 POC Glucose (mg/dL) 130 H 148 H Random Glucose 101 Hemoglobin A1c 6.6 H Calcium 7.4 L Total Bilirubin 0.4 AST 20 ALT 22 Alkaline Phosphatase 65 Total Protein 5.4 L Albumin 2.7 L D Globulin 2.7 Albumin/Globulin Ratio 1.0 Triglycerides 86 Cholesterol 65 LDL Cholesterol Direct < 30 HDL Cholesterol 23 L Free T4 0.97 TSH 3rd Generation 1.20 Arterial Blood Potassium Ur L.pneumophila Ag Mycoplasma pneumon IgM Negative
[2016-07-03] MEDS ORDERED: Sodium Chloride 0.9% 1,000 ML IV SCH (15:50)
[2016-07-03] MEDS ORDERED: Potassium Chloride 20 mEq/15 ml LIQ UD PO ONE (18:00)
[2016-07-03] MEDS: guaiFENesin 100 mg/5 ml Syrup UD PO PRN (22:12)
--- NOTE | 2016-07-03 23:17 | CARD ---
APPROVED REPORT EKG Measurement Heart [id number] <Conclusion> Sinus rhythm with occasional atrial-paced complexes T wave abnormality, consider anterior ischemia Abnormal ECG
[2016-07-04] MEDS: Piperacill/Tazo 3.375gm in Dex 50 ML IVPB SCH ×4 (00:08→17:11)
[2016-07-04] MEDS: Albuterol-Ipratrop 3 mg / 0.5 (3 ml) UD INH SCH ×3 (01:23→19:43)
[2016-07-04] MEDS: Acetylcysteine 20% Inhal Soln (4ml) INH SCH ×4 (01:23→19:43)
[2016-07-04] MEDS: (Novolin R) Insulin Human Regular 100 units/ml vial SC SCH ×4 (07:30→21:28)
--- NOTE | 2016-07-04 07:52 | CARD ---
APPROVED REPORT EXAM: Two-dimensional and M-mode echocardiogram with Doppler and color Doppler. Other Information Quality : FairRhythm : NSR INDICATION Acute AR Dyspnea Syncope Congestive Heart Failure RISK FACTORS Hypertension Hyperlipidemia Diabetes M-Mode DIMENSIONS RVDd1.21 (2.1-3.2cm)Left Atrium (MM)3.87 (2.5-4.0cm) IVSd1.56 (0.7-1.1cm)Aortic Root2.42 (2.2-3.7cm) LVDd6.29 (4.0-5.6cm)Aortic Cusp Exc.1.25 (1.5-2.0cm) PWd1.13 (0.7-1.1cm)FS (%) 22 % LVDs4.88 (2.0-3.8cm)LVEF (%)44 (>50%) Aortic Valve AoV Peak Wjpznfvk009.7cm/Emily Peak GR.16mmHg Mitral Valve MV E Jzwihqnt07.7cm/sMV A Srhkvrlw35.8cm/sE/A ratio1.1 TDI E/Lateral E'0.0E/Medial E'0.0 Tricuspid Valve TR Peak [id number]/sTR Peak [id number] LEFT VENTRICLE The Left Ventricle is mildly dilated. There is mild to moderate asymmetric left ventricular hypertrophy. Left ventricle systolic function is mildly impaired. The Ejection Fraction is 40-45%. The left ventricular diastolic function is normal. RIGHT VENTRICLE The right ventricle is normal size. The right ventricular systolic function is normal. ATRIA The left atrium size is normal. The right atrium size is normal. AORTIC VALVE The aortic valve is moderately calcified. No aortic regurgitation is present. Hemodynamically significant valvular aortic stenosis cannot be excluded. MITRAL VALVE Mitral annular calcification is moderate. There is no evidence of mitral valve prolapse. There is no mitral valve stenosis. There is no mitral valve regurgitation noted. TRICUSPID VALVE The tricuspid valve is normal in structure. There is mild tricuspid regurgitation. There is no pulmonary hypertension. Right ventricular systolic pressure is estimated at less than 30 mmHg. There is no tricuspid valve prolapse or vegetation. There is no tricuspid valve stenosis. PULMONIC VALVE The pulmonic valve is not well visualized. There is no pulmonic valvular regurgitation. GREAT VESSELS The aortic root is normal in size. The IVC is normal in size and collapses >50% with inspiration. PERICARDIAL EFFUSION There is no pericardial effusion. There is no pleural effusion. <Conclusion> Technically fair to poor study. The Left Ventricle is mildly dilated. There is mild to moderate asymmetric left ventricular hypertrophy. Left ventricle systolic function is mildly impaired. The Ejection Fraction is 40-45%. The right ventricle is normal size. The right ventricle is normal size. The right ventricular systolic function is normal. The left atrium size is normal. The right atrium size is normal. There is mild tricuspid regurgitation.
--- NOTE | 2016-07-04 07:53 | CP.PCM.PN ---
<Yeyo Diez - Last Filed: 07/04/16 17:59> Subjective - Date & Time of Evaluation Date of Evaluation: 07/04/16 Time of Evaluation: 07:00 - Subjective Subjective: PGY1 Medicine Note Patient seen and examined at bedside. No acute overnight events. In no no acute distress. Continue to c/o cough and dyspnea on exertion. She reports the cough is productive, with green mucous production. Currently denies f/c, vision changes, palpitations, dyspnea at rest, abdominal pain, n/v, d/c, dysuria, lower extremity swelling, or any additional complaints. Objective - Vital Signs/Intake and Output Vital Signs (last 24 hours): Temp Pulse Resp BP Pulse Ox 98 F 73 20 129/66 96 07/04/16 05:30 07/04/16 05:30 07/04/16 05:30 07/04/16 05:30 07/04/16 05:30 Intake and Output: 07/04/16 07/04/16 06:59 18:59 Intake Total 1000 Balance 1000 - Medications Medications: Current Medications Acetaminophen (Tylenol 325mg Tab) 650 mg PO Q6 PRN PRN Reason: Pain, severe (8-10) Last Admin: 07/04/16 05:45 Dose: 650 mg Acetylcysteine (Acetylcysteine 20%) 4 ml INH RQ6 [facility] Last Admin: 07/04/16 01:23 Dose: Not Given Albuterol/Ipratropium (Duoneb 3 Mg/0.5 Mg (3 Ml) Ud) 3 ml INH RQ6 [facility] Last Admin: 07/04/16 01:23 Dose: Not Given Carvedilol (Coreg) 25 mg PO BID [facility] Last Admin: 07/03/16 17:21 Dose: 25 mg Docusate Sodium (Colace) 100 mg PO BID PRN PRN Reason: Constipation Furosemide (Lasix) 20 mg IVP DAILY [facility] Last Admin: 07/03/16 11:21 Dose: 20 mg Guaifenesin (Robitussin) 100 mg PO Q6H PRN PRN Reason: Cough Last Admin: 07/03/16 22:12 Dose: 100 mg Heparin Sodium (Porcine) (Heparin) 5,000 units SC Q8 [facility] Last Admin: 07/04/16 05:46 Dose: 5,000 units Piperacillin Sod/Tazobactam Sod (Zosyn 3.375 Gm Iv Premix) 50 mls @ 100 mls/hr IVPB Q6H [facility] Last Admin: 07/04/16 05:46 Dose: 100 mls/hr Azithromycin 500 mg/ Sodium (Chloride) 250 mls @ 167 mls/hr IVPB Q24H [facility] Last Admin: 07/03/16 11:22 Dose: 167 mls/hr Sodium Chloride (Sodium Chloride 0.9%) 1,000 mls @ 50 mls/hr IV .Q20H [facility] Last Admin: 07/03/16 16:00 Dose: 50 mls/hr Insulin Human Regular (Novolin R) 0 unit SC ACHS [facility] PRN Reason: Protocol Last Admin: 07/03/16 22:12 Dose: Not Given Montelukast Sodium (Singulair) 10 mg PO HS [facility] Last Admin: 07/03/16 22:11 Dose: 10 mg Oseltamivir Phosphate (Tamiflu Cap) 75 mg PO BID [facility] Stop: 07/08/16 23:04 Pantoprazole Sodium (Protonix Ec Tab) 40 mg PO DAILY [facility] Last Admin: 07/03/16 11:20 Dose: 40 mg Rosuvastatin Calcium (Crestor) 10 mg PO HS [facility] Last Admin: 07/03/16 22:11 Dose: 10 mg - Labs Labs: 07/03/16 06:46 07/03/16 06:46 - Additional Findings Additional findings: - Constitutional Appears: Non-toxic, No Acute Distress - Head Exam Head Exam: ATRAUMATIC, NORMAL INSPECTION, NORMOCEPHALIC - Eye Exam Eye Exam: Normal appearance, PERRL Pupil Exam: NORMAL ACCOMODATION - ENT Exam ENT Exam: Normal Exam - Neck Exam Neck exam: Positive for: Normal Inspection - Respiratory Exam Respiratory Exam: Clear to Auscultation Bilateral, Rales. absent: Rhonchi, Wheezes - Cardiovascular Exam Cardiovascular Exam: REGULAR RHYTHM, RRR, +S1, +S2. absent: Gallop, Rubs - GI/Abdominal Exam GI & Abdominal Exam: Normal Bowel Sounds. absent: Guarding, Soft, Tenderness - Extremities Exam Extremities exam: Positive for: normal inspection - Back Exam Back exam: NORMAL INSPECTION - Psychiatric Exam Psychiatric exam: Normal Affect, Normal Mood - Skin Skin Exam: Normal Color, Warm Assessment and Plan - Assessment and Plan (Free Text) Assessment: Right Middle Lobe Lung Mass 07/04: Pulmonology Consult, Dr. Solo, f/u recs. -Consider Bronchoscopy for further evaluation and biopsy, will discuss with family -continue recommendations as per medicine team Pneumonia 07/04: Chest CT - Rt lung mid lobe obstruction. Rales on lung exam. -> stop IVF. Pulmonology Consult, Dr. Solo, f/u recs. 07/03: repeat CXR shows elevated right hemidiaphragm. -CXR in the ED shows a right focal opacity see emr for full read on x:ray She also has Luecocytosis WBC of 14.7 with left shift no bandemia. Patient admitted to tele/inpatient She received Zosyn and Vanc in the ED, will continue Vanc 1 gram q12 and Zoysn 3.375gm Q5H IVPB. Dr. Jasmine consulted for ID, she was notified of the consult and will need to follow up on her recommendations or orders. Blood, urine, and sputum culture will need to be followe up on. Duoneb 3ml with Mucomyst every q6h, continue home Singular 10mg HS. Status: Acute Near syncope CT of the head is negative, patient put on fall precuations. Status: Acute CHF (congestive heart failure) 07/04: Echo - EF 40-45%, mild TR, L vent dilated. see full report. Patient's BNP is elevated, will order Echo. Lasix 20mg IVP daily. I& monitor continuos, daily weight measurement Status: Suspected Anemia Hgb approx 9.5 since admission. Monitor Diabetes mellitus Accuc checks ACHS with sliding scale medium protocol ordered. 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 Neither staff at sn[facility] or daughter knows why she was taken off Xarelto. Status: Chronic HTN (hypertension) 07/04: BP 126/67 Coreg 25mg bid. Status: Acute Prophylactic measure Pepcid 20mg bid and Heparin 5000 units SC q8h Hold SCDs due to history of DVTs. Status: Acute <Hendrickson,Peter H - Last Filed: 07/04/16 19:01> Objective - Vital Signs/Intake and Output Vital Signs (last 24 hours): Temp Pulse Resp BP Pulse Ox 98.0 F 61 20 126/67 97 07/04/16 17:11 07/04/16 16:20 07/04/16 15:45 07/04/16 17:08 07/04/16 16:20 Intake and Output: 07/04/16 07/04/16 06:59 18:59 Intake Total 1000 250 Balance 1000 250 - Medications Medications: Current Medications Acetaminophen (Tylenol 325mg Tab) 650 mg PO Q6 PRN PRN Reason: Pain, severe (8-10) Last Admin: 07/04/16 17:11 Dose: 650 mg Acetylcysteine (Acetylcysteine 20%) 4 ml INH RQ6 [facility] Last Admin: 07/04/16 08:11 Dose: 4 ml Albuterol/Ipratropium (Duoneb 3 Mg/0.5 Mg (3 Ml) Ud) 3 ml INH RQ6 [facility] Last Admin: 07/04/16 08:10 Dose: 3 ml Carvedilol (Coreg) 25 mg PO BID [facility] Last Admin: 07/04/16 17:08 Dose: 25 mg Docusate Sodium (Colace) 100 mg PO BID PRN PRN Reason: Constipation Furosemide (Lasix) 20 mg IVP DAILY [facility] Last Admin: 07/04/16 09:21 Dose: 20 mg Guaifenesin (Robitussin) 100 mg PO Q6H PRN PRN Reason: Cough Last Admin: 07/04/16 17:06 Dose: 100 mg Heparin Sodium (Porcine) (Heparin) 5,000 units SC Q8 [facility] Last Admin: 07/04/16 13:40 Dose: 5,000 units Piperacillin Sod/Tazobactam Sod (Zosyn 3.375 Gm Iv Premix) 50 mls @ 100 mls/hr IVPB Q6H [facility] Last Admin: 07/04/16 17:11 Dose: 100 mls/hr Azithromycin 500 mg/ Sodium (Chloride) 250 mls @ 167 mls/hr IVPB Q24H [facility] Last Admin: 07/04/16 09:24 Dose: 167 mls/hr Insulin Human Regular (Novolin R) 0 unit SC ACHS [facility] PRN Reason: Protocol Last Admin: 07/04/16 11:59 Dose: Not Given Montelukast Sodium (Singulair) 10 mg PO HS [facility] Last Admin: 07/03/16 22:11 Dose: 10 mg Oseltamivir Phosphate (Tamiflu Cap) 75 mg PO BID [facility] Stop: 07/08/16 23:04 Last Admin: 07/04/16 17:08 Dose: 75 mg Pantoprazole Sodium (Protonix Ec Tab) 40 mg PO DAILY [facility] Last Admin: 07/04/16 09:17 Dose: 40 mg Rosuvastatin Calcium (Crestor) 10 mg PO HS [facility] Last Admin: 07/03/16 22:11 Dose: 10 mg - Labs Labs: 07/04/16 11:33 07/04/16 11:33 Attending/Attestation - Attestation I have personally seen and examined this patient.: Yes I have fully participated in the care of the patient.: Yes I have reviewed all pertinent clinical information, including history, physical exam and plan: Yes Notes (Text): Medical attending: Patient was seen and examined by me, agree with the above note by the resident. The patient completed the CT scan of the chest and the area seen on the CXRAY suggest possible bronchus obstruction. Will try to get a pulmonology evaluation. In the mean time will continue IV abx, monitor cultures and WBC count - the WBC has come down since admission. Will stop IVF for now as the BP is ok and she is tolerating a regular diet. thank you Yeyo Hendrickson
--- NOTE | 2016-07-04 08:26 | CON ---
DATE: 07/03/2016 HISTORY OF PRESENT ILLNESS: She is a 76-year-old [place] female who came in after dizziness and she fell. She has a history of hypertension, COPD, DVT, diabetes mellitus. She fell and hit her head on the wall. She was also having temperature at that time of 102. She came in with worsening cough and greenish sputum, fever, chills and chest pain, and is being treated for pneumonia. I am asked to evaluate her. She has tolerated Zosyn; however, it was written [facility] sheet [facility] that she is ALLERGIC TO _penicillin___, which somehow is not documented here, but she has tolerated Zosyn well and she is on Zithromax. She is still coughing and appears dyspneic. [facility] comes [facility]. She has history of weight loss. She is also going to get a chest CT according to the attending. She denied any nausea, vomiting, diarrhea or urinary symptoms, but there is some history of weight loss she admits. She came in with fever, shortness of breath and coughing and denies any phlegm. PAST MEDICAL HISTORY: Significant for a fracture of the left wrist, she has a splint there. PAST SURGICAL HISTORY: History of appendicectomy, cholecystectomy. SOCIAL HISTORY: She is a former smoker. No history of ETOH or drug abuse. She comes from [place] where she was for rehab. ALLERGIES: She is ____ allergic to any medicine. PAST MEDICAL HISTORY: Significant for DVT. No history of diabetes, no history of decubitus or urinary catheter. REVIEW OF SYSTEMS: She did have chills and fever. No ear, nose and throat symptoms ____. She did have some chest pain, shortness of breath. Denies any palpitation. Does have cough and dyspnea. She has no abdominal pain, constipation, diarrhea or vomiting. Denies any urinary symptoms. Denies any numbness or tingling. No skin problems. No psych problems and no endocrine problems present. She does suffer from COPD, high cholesterol, hypertension. Was written ex-smoker, so I am not sure if she is. Will have to review with her again. MEDICATIONS: She is on Tylenol. She is on acetylcysteine, DuoNeb, Zithromax, Coreg, Colace, Lasix, Robitussin, heparin, Novolin R, Singulair, Protonix, Zosyn , and Crestor. She is only getting like 50 mL for now fluids which probably can be also discontinued soon. PHYSICAL EXAMINATION: VITAL SIGNS: I find her temperature. T-max was 98.8 today. She came in with a temperature of 100.3 and 100. Blood pressure is 110/41, respirations are 18, heart rate is 72. Head is atraumatic, normocephalic. GENERAL: She appears to be sick looking. HEENT: Head is atraumatic, normocephalic. I do not see the bump which she had. Eye movements are unremarkable. Throat is moist. NECK: Supple. Trachea is central. LUNGS: Have bilateral coarse breath sounds. No rhonchi, no wheezing heard. HEART: S1, S2 is regular. No murmurs appreciated. ABDOMEN: Soft, nontender, no guarding, no rigidity present. EXTREMITIES: No edema, clubbing or cyanosis and warm to touch. LABORATORY DATA: She came with a white count of 13.7, hemoglobin 9.5, hematocrit 29.7, platelet count is 287. Today it is 9.3, but her hemoglobin dropped to 8.9. Chemistry was showing potassium of 3.2, sodium is 139, chloride 106, CO2 is 22, anion gap is 14, BUN is 12, creatinine 1.0. LFTs are unremarkable. Hemoglobin A1c is 6.6. She also had a legionella, Mycoplasma pneumoniae, IgM negative. Did not have a flu swab. Urine and mycoplasma and UA and WBC 8. The chest x-ray showed elevated right hemidiaphragm and possible atelectasis versus infiltrate at right base, cephalad elevated hemidiaphragm, possible small right pleural effusion. IMPRESSION AND PLAN: At this time she is admitted with pneumonia and has to be monitored. I would also like would like to put her on Tamiflu empirically and get a flu swab. Get a nasopharyngeal swab. She is tolerating Zosyn and Zithromax at this time. Will follow. She does have a history of diabetes and hypertension and deep venous thrombosis. Shana Jasmine MD cc: [id number] TT: 07/04/2016 07:39:06 Confirmation # [id number] Dictation # [id number] [email or web address] DICKEY
[2016-07-04] MEDS: Pantoprazole 40 mg EC Tab PO SCH (09:17)
[2016-07-04] MEDS: guaiFENesin 100 mg/5 ml Syrup UD PO PRN ×3 (09:22→22:46)
[2016-07-04] MEDS: Azithromycin 500 MG in Sodium Chloride 0.9% 250 ML IVPB SCH (09:24)
--- NOTE | 2016-07-04 10:36 | CT ---
PROCEDURE: CT Chest without contrast HISTORY: coughing, weightloss, COMPARISON: None. TECHNIQUE: Contiguous axial images were obtained through the chest without intravenous contrast enhancement. Sagittal and coronal reconstructions were performed. Radiation dose (DLP): 476.79 mGy-cm. This CT exam was performed using one or more of the following dose reduction techniques: Automated exposure control, adjustment of the mA and/or kV according to patient size, and/or use of iterative reconstruction technique. FINDINGS: LUNGS: There is almost complete consolidation of the right middle lobe. There is suspicious for obstruction at the right middle lobe bronchus. The possibility of neoplasm should be considered. Otherwise no evidence of acute pathology in the lungs. Linear opacity seen at the right lower lobe likely atelectasis or scar tissue. There is moderate elevation of the right hemidiaphragm with findings suspicious for diaphragmatic eventration. MEDIASTINUM: Unremarkable thoracic aorta. No aneurysm. Normal sized heart. Main pulmonary artery unremarkable. No vascular congestion. Slightly prominent mediastinal and right hilar lymph nodes are seen. PLEURA: No pleural fluid. No pneumothorax. BONES: Multiple compression deformities in the lower and mid thoracic spine likely due to osteopenia/osteoporosis. UPPER ABDOMEN: Grossly unremarkable. OTHER FINDINGS: None. IMPRESSION: Almost complete consolidation of the right middle lobe with findings suspicious of right middle lobe bronchus obstruction. The possibility of neoplasm should be considered. Further assessment is recommended. No evidence of acute pathology in the lungs otherwise. Multiple compression fractures in the mid and lower thoracic spine likely due to osteopenia/ osteoporosis. Preliminary report was submitted by [facility].
[2016-07-04 11:42] LABS: BASO % 0.3 % (0.0-2.0); EOS # 0.4 K/uL (0.0-0.7); EOS % 4.1 % (0.0-4.0); HEMATOCRIT 28.8 % (34.0-47.0); LYMPH # 2.5 K/uL (1.0-4.3); LYMPH % 27.7 % (20.0-40.0); MEAN CELL VOLUME 80.1 fL (81.0-99.0); MEAN CORPUSCULAR HEMOGLOBIN 26.4 pg (27.0-31.0); MEAN PLATELET VOLUME 7.8 fL (7.2-11.7); MONO # 0.9 K/uL (0.0-0.8); MONO % 10.2 % (0.0-10.0); RED CELL DISTRIBUTION WIDTH 16.9 % (11.5-14.5); WHITE BLOOD COUNT 9.1 K/uL (4.8-10.8)
[2016-07-04 12:03] LABS: POTASSIUM 3.9 mmol/L (3.6-5.2)
[2016-07-04 12:05] LABS: ALB/GLOB RATIO 1.1 (1.0-2.1); BILIRUBIN,TOTAL 0.3 mg/dL (0.2-1.3); TOTAL PROTEIN 6.6 g/dL (6.3-8.3)
[2016-07-04 12:06] LABS: CALCIUM 8.4 mg/dl (8.6-10.4); MAGNESIUM 2.1 mg/dL (1.6-2.3); PHOSPHOROUS 2.8 mg/dL (2.5-4.5)
--- NOTE | 2016-07-04 13:32 | CP.PCM.CON ---
History of Present Illness - History of Present Illness History of Present Illness: Pulmonology was consulted for Right lung - middle lobe obstruction. Pt is a 76yo F that initially presented to [facility] for one episode of near syncope and fall, imaging done in the the ED and subsequent imaging on admission revealed right lung mass possibly causing right middle lobe obstruction. The Pt was seen and examined at bedside today, she was in no acute distress but did complain of cough and dyspnea on exertion. The pt reports that he cough is green in color and started this past sunday along with the dyspnea. The pt currently denies headache, nausea, vomiting, fever, chills, palpitations, dyspnea at rest. PMH: HTN, COPD, DM PSH: Appendectomy, Cholecystectomy Family: Denies Social: Denies ever smoking, drinking, or using ilicit drugs. currently lives at [facility]. Allergies: NKDA. Review of Systems - Constitutional Constitutional: absent: Chills, Fever - EENT Nose/Mouth/Throat: absent: Nasal Discharge, Nose Pain, Post Nasal Drip - Cardiovascular Cardiovascular: absent: Chest Pain, Edema, Lightheadedness - Respiratory Respiratory: Cough, Dyspnea, Wheezing, Change in Mucous Color, Pain with Coughing. absent: Pain on Inspiration - Gastrointestinal Gastrointestinal: absent: Abdominal Pain, Constipation, Diarrhea - Integumentary Integumentary: absent: Rash, Skin Ulcer, Swelling - Neurological Neurological: absent: Dizziness, Numbness, Headaches, Tingling, Vertigo, Weakness Past Patient History - Infectious Disease Hx of Infectious Diseases: None - Past Medical History & Family History Past Medical History?: Yes - Past Social History Smoking Status: Never Smoked Chewing Tobacco Use: No Cigar Use: No Alcohol: None Drugs: Denies - CARDIAC Hx Hypercholesterolemia: Yes Hx Hypertension: Yes - PULMONARY Hx Asthma: Yes Hx Chronic Obstructive Pulmonary Disease (COPD): Yes - NEUROLOGICAL Hx Dizziness: Yes - HEENT Hx HEENT Problems: No - RENAL Hx Chronic Kidney Disease: No - ENDOCRINE/METABOLIC Hx Diabetes Mellitus Type 2: Yes - HEMATOLOGICAL/ONCOLOGICAL Hx Anemia: Yes - INTEGUMENTARY Hx Dermatological Problems: No - MUSCULOSKELETAL/RHEUMATOLOGICAL Hx Falls: Yes Hx Gout: Yes Other/Comment: hx of stress fracture. - GASTROINTESTINAL Hx Gastroesophageal Reflux: Yes - GENITOURINARY/GYNECOLOGICAL Hx Genitourinary Disorders: No - PSYCHIATRIC Hx Anxiety: Yes Hx Substance Use: No - SURGICAL HISTORY Hx Appendectomy: Yes Hx Cholecystectomy: Yes - ANESTHESIA Hx Anesthesia: Yes Hx Anesthesia Reactions: No Hx Malignant Hyperthermia: No Meds Allergies/Adverse Reactions: Allergies Allergy/AdvReac Type Severity Reaction Status Date / Time No Known Allergies Allergy Unverified 03/03/16 02:28 - Medications Medications: Current Medications Acetaminophen (Tylenol 325mg Tab) 650 mg PO Q6 PRN PRN Reason: Pain, severe (8-10) Last Admin: 07/04/16 05:45 Dose: 650 mg Acetylcysteine (Acetylcysteine 20%) 4 ml INH RQ6 [facility] Last Admin: 07/04/16 08:11 Dose: 4 ml Albuterol/Ipratropium (Duoneb 3 Mg/0.5 Mg (3 Ml) Ud) 3 ml INH RQ6 [facility] Last Admin: 07/04/16 08:10 Dose: 3 ml Carvedilol (Coreg) 25 mg PO BID [facility] Last Admin: 07/04/16 09:17 Dose: 25 mg Docusate Sodium (Colace) 100 mg PO BID PRN PRN Reason: Constipation Furosemide (Lasix) 20 mg IVP DAILY [facility] Last Admin: 07/04/16 09:21 Dose: 20 mg Guaifenesin (Robitussin) 100 mg PO Q6H PRN PRN Reason: Cough Last Admin: 07/04/16 09:22 Dose: 100 mg Heparin Sodium (Porcine) (Heparin) 5,000 units SC Q8 [facility] Last Admin: 07/04/16 05:46 Dose: 5,000 units Piperacillin Sod/Tazobactam Sod (Zosyn 3.375 Gm Iv Premix) 50 mls @ 100 mls/hr IVPB Q6H [facility] Last Admin: 07/04/16 12:09 Dose: 100 mls/hr Azithromycin 500 mg/ Sodium (Chloride) 250 mls @ 167 mls/hr IVPB Q24H [facility] Last Admin: 07/04/16 09:24 Dose: 167 mls/hr Insulin Human Regular (Novolin R) 0 unit SC ACHS [facility] PRN Reason: Protocol Last Admin: 07/04/16 11:59 Dose: Not Given Montelukast Sodium (Singulair) 10 mg PO HS [facility] Last Admin: 07/03/16 22:11 Dose: 10 mg Oseltamivir Phosphate (Tamiflu Cap) 75 mg PO BID [facility] Stop: 07/08/16 23:04 Last Admin: 07/04/16 09:18 Dose: 75 mg Pantoprazole Sodium (Protonix Ec Tab) 40 mg PO DAILY [facility] Last Admin: 07/04/16 09:17 Dose: 40 mg Rosuvastatin Calcium (Crestor) 10 mg PO HS [facility] Last Admin: 07/03/16 22:11 Dose: 10 mg Physical Exam - Constitutional Appears: Well, Non-toxic, No Acute Distress - Head Exam Head Exam: ATRAUMATIC, NORMAL INSPECTION - Eye Exam Eye Exam: Normal appearance - Respiratory Exam Respiratory Exam: Chest Wall Tenderness, Wheezes. absent: Rales, Rhonchi, Respiratory Distress - Cardiovascular Exam Cardiovascular Exam: +S1, +S2 - Extremities Exam Extremities exam: Positive for: normal inspection. Negative for: pedal edema - Neurological Exam Neurological exam: Alert, Oriented x3 - Skin Skin Exam: Dry, Normal Color, Warm Results - Vital Signs Recent Vital Signs: Last Vital Signs Temp 97.4 F L 07/04/16 07:15 Pulse 76 07/04/16 09:20 Resp 20 07/04/16 07:15 BP 114/56 L 07/04/16 09:21 Pulse Ox 98 07/04/16 07:15 - Labs Result Diagrams: 07/04/16 11:33 07/04/16 11:33 Labs: Laboratory Results - last 24 hr 07/03/16 07/03/16 07/03/16 06:46 16:19 21:40 WBC RBC Hgb Hct MCV MCH MCHC RDW Plt Count MPV Neut % (Auto) Lymph % (Auto) [place] % (Auto) Eos % (Auto) Baso % (Auto) Neut # Lymph # [place] # Eos # Baso # Sodium Potassium Chloride Carbon Dioxide Anion Gap BUN Creatinine Est GFR ( Amer) Est GFR (Non-Af Amer) POC Glucose (mg/dL) 99 97 Random Glucose Calcium Phosphorus Magnesium Total Bilirubin AST ALT Alkaline Phosphatase Total Protein Albumin Globulin Albumin/Globulin Ratio Mycoplasma pneumon IgM Negative 07/04/16 07/04/16 07/04/16 06:32 11:30 11:33 WBC 9.1 RBC 3.60 L Hgb 9.5 L Hct 28.8 L MCV 80.1 L MCH 26.4 L MCHC 33.0 RDW 16.9 H Plt Count 275 MPV 7.8 Neut % (Auto) 57.7 Lymph % (Auto) 27.7 [place] % (Auto) 10.2 H Eos % (Auto) 4.1 H Baso % (Auto) 0.3 Neut # 5.2 Lymph # 2.5 [place] # 0.9 H Eos # 0.4 Baso # 0.0 Sodium 142 Potassium 3.9 Chloride 104 Carbon Dioxide 20 L Anion Gap 22 H BUN 15 Creatinine 1.2 Est GFR ( Amer) 53 Est GFR (Non-Af Amer) 43 POC Glucose (mg/dL) 110 107 Random Glucose 101 Calcium 8.4 L Phosphorus 2.8 Magnesium 2.1 Total Bilirubin 0.3 AST 32 ALT 26 Alkaline Phosphatase 75 Total Protein 6.6 Albumin 3.5 D Globulin 3.2 Albumin/Globulin Ratio 1.1 Mycoplasma pneumon IgM 07/04/16 11:53 WBC RBC Hgb Hct MCV MCH MCHC RDW Plt Count MPV Neut % (Auto) Lymph % (Auto) [place] % (Auto) Eos % (Auto) Baso % (Auto) Neut # Lymph # [place] # Eos # Baso # Sodium Potassium Chloride Carbon Dioxide Anion Gap BUN Creatinine Est GFR ( Amer) Est GFR (Non-Af Amer) POC Glucose (mg/dL) 117 H Random Glucose Calcium Phosphorus Magnesium Total Bilirubin AST ALT Alkaline Phosphatase Total Protein Albumin Globulin Albumin/Globulin Ratio Mycoplasma pneumon IgM Assessment & Plan - Assessment and Plan (Free Text) Plan: (1) Right Middle Lobe Lung Mass Consider Bronchoscopy for further evaluation and biopsy, will discuss with family continue recommendations as per medicine team - Date & Time Date: 07/04/16 Time: 13:32
--- NOTE | 2016-07-04 14:42 | CP.PCM.PN ---
Subjective - Date & Time of Evaluation Date of Evaluation: 07/04/16 Time of Evaluation: 02:30 - Subjective Subjective: dictated Objective - Vital Signs/Intake and Output Vital Signs (last 24 hours): Temp Pulse Resp BP Pulse Ox 97.4 F L 76 20 114/56 L 98 07/04/16 07:15 07/04/16 09:20 07/04/16 07:15 07/04/16 09:21 07/04/16 07:15 Intake and Output: 07/04/16 07/04/16 06:59 18:59 Intake Total 1000 Balance 1000 - Medications Medications: Current Medications Acetaminophen (Tylenol 325mg Tab) 650 mg PO Q6 PRN PRN Reason: Pain, severe (8-10) Last Admin: 07/04/16 05:45 Dose: 650 mg Acetylcysteine (Acetylcysteine 20%) 4 ml INH RQ6 [facility] Last Admin: 07/04/16 08:11 Dose: 4 ml Albuterol/Ipratropium (Duoneb 3 Mg/0.5 Mg (3 Ml) Ud) 3 ml INH RQ6 [facility] Last Admin: 07/04/16 08:10 Dose: 3 ml Carvedilol (Coreg) 25 mg PO BID [facility] Last Admin: 07/04/16 09:17 Dose: 25 mg Docusate Sodium (Colace) 100 mg PO BID PRN PRN Reason: Constipation Furosemide (Lasix) 20 mg IVP DAILY [facility] Last Admin: 07/04/16 09:21 Dose: 20 mg Guaifenesin (Robitussin) 100 mg PO Q6H PRN PRN Reason: Cough Last Admin: 07/04/16 09:22 Dose: 100 mg Heparin Sodium (Porcine) (Heparin) 5,000 units SC Q8 [facility] Last Admin: 07/04/16 13:40 Dose: 5,000 units Piperacillin Sod/Tazobactam Sod (Zosyn 3.375 Gm Iv Premix) 50 mls @ 100 mls/hr IVPB Q6H [facility] Last Admin: 07/04/16 12:09 Dose: 100 mls/hr Azithromycin 500 mg/ Sodium (Chloride) 250 mls @ 167 mls/hr IVPB Q24H [facility] Last Admin: 07/04/16 09:24 Dose: 167 mls/hr Insulin Human Regular (Novolin R) 0 unit SC ACHS [facility] PRN Reason: Protocol Last Admin: 07/04/16 11:59 Dose: Not Given Montelukast Sodium (Singulair) 10 mg PO HS [facility] Last Admin: 07/03/16 22:11 Dose: 10 mg Oseltamivir Phosphate (Tamiflu Cap) 75 mg PO BID [facility] Stop: 07/08/16 23:04 Last Admin: 07/04/16 09:18 Dose: 75 mg Pantoprazole Sodium (Protonix Ec Tab) 40 mg PO DAILY [facility] Last Admin: 07/04/16 09:17 Dose: 40 mg Rosuvastatin Calcium (Crestor) 10 mg PO HS [facility] Last Admin: 07/03/16 22:11 Dose: 10 mg - Labs Labs: 07/04/16 11:33 07/04/16 11:33
--- NOTE | 2016-07-04 15:21 | VASCLAB ---
PROCEDURE: Lower Extremity Venous Duplex Exam. HISTORY: history of DVT PRIORS: None. TECHNIQUE: Bilateral common femoral, femoral, popliteal and posterior tibial, peroneal and great saphenous veins were evaluated. Flow was assessed with color Doppler, compressibility, assessment of phasic flow and augmentation response. Report prepared by Doroteo Abdi, NICOLETTE, RVT FINDINGS: RIGHT: 1. Common Femoral Vein: 1.1. Compressibility - Fully compressible: Thrombus - None : Flow - Phasic: Augmentation -Normal: Reflux - None. 2. Femoral Vein: 2.1. Compressibility - Fully compressible: Thrombus - None : Flow - Phasic: Augmentation -Normal: Reflux - None. 3. Popliteal Vein: 3.1. Compressibility - Fully compressible: Thrombus - None : Flow - Phasic: Augmentation -Normal: Reflux - None. 4. Posterior Tibial Vein: 4.1. Compressibility - Fully compressible: Thrombus - None: Flow - Phasic: Augmentation -Normal: Reflux - None. 5. Peroneal Vein: 5.1. Compressibility - Fully compressible: Thrombus - None: Flow - Phasic: Augmentation -Normal: Reflux - None. 6. Great Saphenous Vein: 6.1. Compressibility - Fully compressible: Thrombus - None: Flow - Phasic: Augmentation - Normal: Reflux - Severe. LEFT: 1. Common Femoral Vein: 1.1. Compressibility - Fully compressible: Thrombus - None: Flow - Phasic: Augmentation -Normal: Reflux - None. 2. Femoral Vein: 2.1. Compressibility - Fully compressible: Thrombus - None: Flow - Phasic: Augmentation -Normal: Reflux - None. 3. Popliteal Vein: 3.1. Compressibility - Fully compressible: Thrombus - None : Flow - Phasic: Augmentation -Normal: Reflux - Severe. 4. Posterior Tibial Vein: 4.1. Compressibility - Fully compressible: Thrombus - None: Flow - Phasic: Augmentation -Normal: Reflux - None. 5. Peroneal Vein: 5.1. Compressibility - Fully compressible: Thrombus - None: Flow - Phasic: Augmentation -Normal: Reflux - None. 6. Great Saphenous Vein: 6.1. Compressibility - Fully compressible: Thrombus - None: Flow - Phasic: Augmentation - Normal: Reflux - None. OTHER FINDINGS: Right: Severe valvular incompetence of the right greater saphenous vein. Left: Severe valvular incompetence of the left popliteal vein. IMPRESSION: Right: No evidence of deep or superficial vein thrombosis of the right lower extremity. Left: No evidence of deep or superficial vein thrombosis of the left lower extremity.
--- NOTE | 2016-07-04 22:57 | PN ---
DATE: 07/04/2016 I saw this patient yesterday. She says she is feeling slightly better. She is still coughing. I as ked her and she said she gave the phlegm for culture and she denies ever smoking. She was seen by charli nuñez and there is suspicion of malignancy and she is going to do a bronchoscopy, but this was not discussed with the patient; however, she did say she was feeling better, but she is weak. PHYSICAL EXAMINATION: VITAL SIGNS: Temperature is 98, pulse 61, blood pressure 103/59, respirations are 20. HEENT: Head is atraumatic, normocephalic. Pupils are reacting to light. Mild pallor present. LUNGS: Clear. No crackles or rales present at this time on the right side. Occasional wheeze on th e left side. ABDOMEN: Soft, nontender, no guarding, no rigidity present. EXTREMITIES: No edema, clubbing or cyanosis. LABORATORY DATA: White count is 9.1, hemoglobin 9.5, hematocrit 28.8. She is anemic and has a low M CV, probably she has iron deficiency anemia. Creatinine is 1.2, carbon dioxide is 20, anion gap is 2 2, is high. Chest x-ray was done, which showed almost complete consolidation of right middle lobe wi th findings suspicion of right middle lobe bronchus obstruction, possibility of neoplasm should be co nsidered. No evidence of acute pathology in the lungs; multiple compression fractures in mid and low thoracic spine, likely due to osteoporosis. PLAN: So at this time, we will follow. She is on Zosyn and Zithromax. We will continue those and a sputum was sent. Blood culture x 2 were negative. I do not see a urine culture, but we will follow the sputum culture, and will follow with pulmonary also. Shana Jasmine MD cc: [id number] TT: 07/04/2016 22:56:44 Confirmation # [id number] Dictation # [id number] [email or web address]
[2016-07-05] MEDS: Piperacill/Tazo 3.375gm in Dex 50 ML IVPB SCH ×4 (00:45→17:53)
[2016-07-05] MEDS: Albuterol-Ipratrop 3 mg / 0.5 (3 ml) UD INH SCH ×3 (01:06→19:47)
[2016-07-05] MEDS: Acetylcysteine 20% Inhal Soln (4ml) INH SCH ×4 (01:06→19:47)
--- NOTE | 2016-07-05 07:24 | CP.PCM.PN ---
<Yeyo Diez - Last Filed: 07/05/16 12:37> Subjective - Date & Time of Evaluation Date of Evaluation: 07/05/16 Time of Evaluation: 07:15 - Subjective Subjective: PGY1 Medicine Note - Dr. Hendrickson Patient seen and examined at bedside. No acute overnight events. Pt in no no acute distress, resting comfortably. Continue to c/o cough and dyspnea on exertion. Persistent cough productive of green mucous. Nervous about procedure tomorrow, schedule for Bronchoscopy with Dr. Solo in the morning. Currently denies f/c, vision changes, palpitations, dyspnea at rest, abdominal pain, n/v, d/c, dysuria, lower extremity swelling, or any additional complaints. Objective - Vital Signs/Intake and Output Vital Signs (last 24 hours): Temp Pulse Resp BP Pulse Ox 98.5 F 80 20 153/70 H 97 07/04/16 23:45 07/04/16 23:45 07/04/16 23:45 07/04/16 23:45 07/04/16 23:45 Intake and Output: 07/05/16 07/05/16 06:59 18:59 Intake Total 290 Balance 290 - Medications Medications: Current Medications Acetaminophen (Tylenol 325mg Tab) 650 mg PO Q6 PRN PRN Reason: Pain, severe (8-10) Last Admin: 07/05/16 05:49 Dose: 650 mg Acetylcysteine (Acetylcysteine 20%) 4 ml INH RQ6 [facility] Last Admin: 07/05/16 01:06 Dose: 4 ml Albuterol/Ipratropium (Duoneb 3 Mg/0.5 Mg (3 Ml) Ud) 3 ml INH RQ6 [facility] Last Admin: 07/05/16 01:06 Dose: 3 ml Carvedilol (Coreg) 25 mg PO BID [facility] Last Admin: 07/04/16 17:08 Dose: 25 mg Docusate Sodium (Colace) 100 mg PO BID PRN PRN Reason: Constipation Furosemide (Lasix) 20 mg IVP DAILY [facility] Last Admin: 07/04/16 09:21 Dose: 20 mg Guaifenesin (Robitussin) 100 mg PO Q6H PRN PRN Reason: Cough Last Admin: 07/04/16 22:46 Dose: 100 mg Heparin Sodium (Porcine) (Heparin) 5,000 units SC Q8 [facility] Last Admin: 07/05/16 05:49 Dose: 5,000 units Piperacillin Sod/Tazobactam Sod (Zosyn 3.375 Gm Iv Premix) 50 mls @ 100 mls/hr IVPB Q6H [facility] Last Admin: 07/05/16 05:41 Dose: 100 mls/hr Azithromycin 500 mg/ Sodium (Chloride) 250 mls @ 167 mls/hr IVPB Q24H [facility] Last Admin: 07/04/16 09:24 Dose: 167 mls/hr Insulin Human Regular (Novolin R) 0 unit SC ACHS [facility] PRN Reason: Protocol Last Admin: 07/04/16 21:28 Dose: Not Given Montelukast Sodium (Singulair) 10 mg PO HS [facility] Last Admin: 07/04/16 21:29 Dose: 10 mg Oseltamivir Phosphate (Tamiflu Cap) 75 mg PO BID [facility] Stop: 07/08/16 23:04 Last Admin: 07/04/16 17:08 Dose: 75 mg Pantoprazole Sodium (Protonix Ec Tab) 40 mg PO DAILY [facility] Last Admin: 07/04/16 09:17 Dose: 40 mg Rosuvastatin Calcium (Crestor) 10 mg PO HS [facility] Last Admin: 07/04/16 21:29 Dose: 10 mg - Labs Labs: 07/04/16 11:33 07/04/16 11:33 - Additional Findings Additional findings: - Constitutional Appears: Non-toxic, No Acute Distress - Head Exam Head Exam: ATRAUMATIC, NORMAL INSPECTION, NORMOCEPHALIC - Eye Exam Eye Exam: Normal appearance, PERRL Pupil Exam: NORMAL ACCOMODATION - ENT Exam ENT Exam: Normal Exam - Neck Exam Neck exam: Positive for: Normal Inspection - Respiratory Exam Respiratory Exam: Rales (improving). absent: Rhonchi, Wheezes - Cardiovascular Exam Cardiovascular Exam: REGULAR RHYTHM, RRR, +S1, +S2. absent: Gallop, Rubs - GI/Abdominal Exam GI & Abdominal Exam: Normal Bowel Sounds. absent: Guarding, Soft, Tenderness - Extremities Exam Extremities exam: Positive for: normal inspection absent: Pedal edema - Back Exam Back exam: NORMAL INSPECTION - Psychiatric Exam Psychiatric exam: Normal Affect, Normal Mood - Skin Skin Exam: Normal Color, Warm Assessment and Plan - Assessment and Plan (Free Text) Assessment: Disposition: -PT recommends MARY on discharge Right Middle Lobe Lung Mass 4/5: Bronchoscopy in the am. NPO after midnight. Pulmonology Consult, Dr. Solo, f/u recs. -Consider Bronchoscopy for further evaluation and biopsy, will discuss with family -continue recommendations as per medicine team Pneumonia 07/05: Blood cult negative x2d; Sputum culture pending. 07/04: Chest CT - Rt lung mid lobe obstruction. Rales on lung exam. -> stop IVF. Pulmonology Consult, Dr. Solo, f/u recs. 07/03: repeat CXR shows elevated right hemidiaphragm. -CXR in the ED shows a right focal opacity see emr for full read on x:ray She also has Luecocytosis WBC of 14.7 with left shift no bandemia. Patient admitted to tele/inpatient She received Zosyn and Vanc in the ED, will continue Vanc 1 gram q12 and Zoysn 3.375gm Q5H IVPB. Dr. Jasmine consulted for ID, she was notified of the consult and will need to follow up on her recommendations or orders. Blood, urine, and sputum culture will need to be followe up on. Duoneb 3ml with Mucomyst every q6h, continue home Singular 10mg HS. Status: Acute CHF (congestive heart failure) 07/05: Increase lasix to BID 07/04: Echo - EF 40-45%, mild TR, L vent dilated. see full report. Patient's BNP is elevated, will order Echo. Lasix 20mg IVP BID monitor continuos, daily weight measurement Status: Suspected Near syncope CT of the head is negative, patient put on fall precuations. Status: Acute Anemia 07/05: Hgb 10.1, stable Hgb approx 9.5 since admission. Monitor Diabetes mellitus Accuc checks ACHS with sliding scale medium protocol ordered. Status: Chronic Hyperlipidemia 07/03: Triglyc 86; Cholest 65; LDL <30; HDL 23 L Crestor 10mg HS Status: Chronic History of DVT of lower extremity 07/04: LE duplex - negative Accoring to the records from the skilled nursing and patient's daughter patient at one time was one Xarelto for DVT however she is not Xarelto currently. Neither staff at skilled nursing or daughter knows why she was taken off Xarelto. Status: Chronic HTN (hypertension) 4/4: BP 126/67 Coreg 25mg bid. Status: Acute Prophylactic measure Pepcid 20mg bid and Heparin 5000 units SC q8h Hold SCDs due to history of DVTs. Status: Acute <Yeyo Hendrickson H - Last Filed: 07/05/16 14:46> Objective - Vital Signs/Intake and Output Vital Signs (last 24 hours): Temp Pulse Resp BP Pulse Ox 98.1 F 73 18 106/62 98 07/05/16 13:43 07/05/16 12:55 07/05/16 07:05 07/05/16 11:18 07/05/16 07:05 Intake and Output: 07/05/16 07/05/16 06:59 18:59 Intake Total 510 Balance 510 - Medications Medications: Current Medications Acetaminophen (Tylenol 325mg Tab) 650 mg PO Q6 PRN PRN Reason: Pain, severe (8-10) Last Admin: 07/05/16 13:43 Dose: 650 mg Acetylcysteine (Acetylcysteine 20%) 4 ml INH RQ6 [facility] Last Admin: 07/05/16 13:36 Dose: Not Given Albuterol/Ipratropium (Duoneb 3 Mg/0.5 Mg (3 Ml) Ud) 3 ml INH RQ6 [facility] Last Admin: 07/05/16 07:56 Dose: Not Given Carvedilol (Coreg) 25 mg PO BID [facility] Last Admin: 07/05/16 09:43 Dose: Not Given Docusate Sodium (Colace) 100 mg PO BID PRN PRN Reason: Constipation Furosemide (Lasix) 20 mg IVP BID [facility] Guaifenesin (Robitussin) 100 mg PO Q6H PRN PRN Reason: Cough Last Admin: 07/05/16 11:31 Dose: 100 mg Heparin Sodium (Porcine) (Heparin) 5,000 units SC Q8 [facility] Last Admin: 07/05/16 13:41 Dose: 5,000 units Piperacillin Sod/Tazobactam Sod (Zosyn 3.375 Gm Iv Premix) 50 mls @ 100 mls/hr IVPB Q6H [facility] Last Admin: 07/05/16 11:31 Dose: 100 mls/hr Azithromycin 500 mg/ Sodium (Chloride) 250 mls @ 167 mls/hr IVPB Q24H [facility] Last Admin: 07/05/16 09:44 Dose: 167 mls/hr Insulin Human Regular (Novolin R) 0 unit SC ACHS [facility] PRN Reason: Protocol Last Admin: 07/05/16 12:10 Dose: 2 unit Montelukast Sodium (Singulair) 10 mg PO HS [facility] Last Admin: 07/04/16 21:29 Dose: 10 mg Oseltamivir Phosphate (Tamiflu Cap) 75 mg PO BID [facility] Stop: 07/08/16 23:04 Last Admin: 07/05/16 10:15 Dose: 75 mg Pantoprazole Sodium (Protonix Ec Tab) 40 mg PO DAILY [facility] Last Admin: 07/05/16 10:14 Dose: 40 mg Rosuvastatin Calcium (Crestor) 10 mg PO HS [facility] Last Admin: 07/04/16 21:29 Dose: 10 mg - Labs Labs: 07/05/16 08:17 07/05/16 08:17 Attending/Attestation - Attestation I have personally seen and examined this patient.: Yes I have fully participated in the care of the patient.: Yes I have reviewed all pertinent clinical information, including history, physical exam and plan: Yes Notes (Text): 07/05/16 14:43 Medical Attending: Patient was seen and examined by me. Agree with the above note by the resident. Because of the CT lung findings we asked for a pulmonary evaluation and she is pending a bronchoscope early tomorrow in the morning. The patient signed the consent on her own. She did appear to look more active and breathing easier today when we saw and examined her. thank you Yeyo Hendrickson
[2016-07-05] MEDS: (Novolin R) Insulin Human Regular 100 units/ml vial SC SCH ×4 (07:40→22:00)
[2016-07-05 08:28] LABS: BASO % 0.3 % (0.0-2.0); EOS # 0.4 K/uL (0.0-0.7); EOS % 4.3 % (0.0-4.0); HEMATOCRIT 31.5 % (34.0-47.0); LYMPH # 2.2 K/uL (1.0-4.3); MEAN CELL VOLUME 80.5 fL (81.0-99.0); MEAN CORPUSCULAR HEMOGLOBIN 25.7 pg (27.0-31.0); MEAN CORPUSCULAR HGB CONC 31.9 g/dL (33.0-37.0); MEAN PLATELET VOLUME 7.9 fL (7.2-11.7); MONO # 0.8 K/uL (0.0-0.8); MONO % 7.8 % (0.0-10.0); RED CELL DISTRIBUTION WIDTH 16.5 % (11.5-14.5); WHITE BLOOD COUNT 10.3 K/uL (4.8-10.8)
[2016-07-05 08:36] LABS: POTASSIUM 3.9 mmol/L (3.6-5.2)
[2016-07-05 08:39] LABS: ALB/GLOB RATIO 1.1 (1.0-2.1); BILIRUBIN,TOTAL 0.4 mg/dL (0.2-1.3); CALCIUM 8.9 mg/dl (8.6-10.4); PHOSPHOROUS 3.5 mg/dL (2.5-4.5); TOTAL PROTEIN 7.3 g/dL (6.3-8.3)
[2016-07-05] MEDS: Azithromycin 500 MG in Sodium Chloride 0.9% 250 ML IVPB SCH (09:44)
[2016-07-05] MEDS: Pantoprazole 40 mg EC Tab PO SCH (10:14)
--- NOTE | 2016-07-05 11:25 | CP.PCM.PN ---
Subjective - Date & Time of Evaluation Date of Evaluation: 07/05/16 Time of Evaluation: 11:21 - Subjective Subjective: Patient seen and examined at bedside, no acute distress, no acute events overnight. Pt is in good spirits but nervous about the procedure tomorrow. Continues to complain of green sputum production and cough, but currently denies chest pain, headache, palpitations, dyspnea, nausea, fever, chills, vomiting at this time. Objective - Vital Signs/Intake and Output Vital Signs (last 24 hours): Temp Pulse Resp BP Pulse Ox 98.5 F 73 18 106/62 98 07/05/16 07:05 07/05/16 11:18 07/05/16 07:05 07/05/16 11:18 07/05/16 07:05 Intake and Output: 07/05/16 07/05/16 06:59 18:59 Intake Total 510 Balance 510 - Medications Medications: Current Medications Acetaminophen (Tylenol 325mg Tab) 650 mg PO Q6 PRN PRN Reason: Pain, severe (8-10) Last Admin: 07/05/16 05:49 Dose: 650 mg Acetylcysteine (Acetylcysteine 20%) 4 ml INH RQ6 [facility] Last Admin: 07/05/16 07:56 Dose: Not Given Albuterol/Ipratropium (Duoneb 3 Mg/0.5 Mg (3 Ml) Ud) 3 ml INH RQ6 [facility] Last Admin: 07/05/16 07:56 Dose: Not Given Carvedilol (Coreg) 25 mg PO BID [facility] Last Admin: 07/05/16 09:43 Dose: Not Given Docusate Sodium (Colace) 100 mg PO BID PRN PRN Reason: Constipation Furosemide (Lasix) 20 mg IVP DAILY [facility] Last Admin: 07/05/16 10:15 Dose: 20 mg Guaifenesin (Robitussin) 100 mg PO Q6H PRN PRN Reason: Cough Last Admin: 07/04/16 22:46 Dose: 100 mg Heparin Sodium (Porcine) (Heparin) 5,000 units SC Q8 [facility] Last Admin: 07/05/16 05:49 Dose: 5,000 units Piperacillin Sod/Tazobactam Sod (Zosyn 3.375 Gm Iv Premix) 50 mls @ 100 mls/hr IVPB Q6H [facility] Last Admin: 07/05/16 05:41 Dose: 100 mls/hr Azithromycin 500 mg/ Sodium (Chloride) 250 mls @ 167 mls/hr IVPB Q24H [facility] Last Admin: 07/05/16 09:44 Dose: 167 mls/hr Insulin Human Regular (Novolin R) 0 unit SC ACHS [facility] PRN Reason: Protocol Last Admin: 07/05/16 07:40 Dose: Not Given Montelukast Sodium (Singulair) 10 mg PO HS [facility] Last Admin: 07/04/16 21:29 Dose: 10 mg Oseltamivir Phosphate (Tamiflu Cap) 75 mg PO BID [facility] Stop: 07/08/16 23:04 Last Admin: 07/05/16 10:15 Dose: 75 mg Pantoprazole Sodium (Protonix Ec Tab) 40 mg PO DAILY [facility] Last Admin: 07/05/16 10:14 Dose: 40 mg Rosuvastatin Calcium (Crestor) 10 mg PO HS [facility] Last Admin: 07/04/16 21:29 Dose: 10 mg - Labs Labs: 07/05/16 08:17 07/05/16 08:17 - Constitutional Appears: Well, Non-toxic - Head Exam Head Exam: ATRAUMATIC, NORMAL INSPECTION - Eye Exam Eye Exam: Normal appearance - Respiratory Exam Respiratory Exam: Decreased Breath Sounds, Wheezes - Cardiovascular Exam Cardiovascular Exam: +S1, +S2 - Neurological Exam Neurological Exam: Alert, Awake, Oriented x3 - Skin Skin Exam: Dry, Normal Color, Warm Assessment and Plan - Assessment and Plan (Free Text) Plan: (1) Right Middle Lobe Lung Mass Bronchoscopy scheduled for tomorrow 07/06/2016 AM
[2016-07-05] MEDS: guaiFENesin 100 mg/5 ml Syrup UD PO PRN (11:31)
--- NOTE | 2016-07-05 21:00 | CP.PCM.PN ---
Subjective - Date & Time of Evaluation Date of Evaluation: 07/05/16 Time of Evaluation: 02:15 - Subjective Subjective: dictated Objective - Vital Signs/Intake and Output Vital Signs (last 24 hours): Temp Pulse Resp BP Pulse Ox 98.8 F 66 20 118/64 97 07/05/16 16:08 07/05/16 17:32 07/05/16 16:08 07/05/16 17:52 07/05/16 16:08 - Medications Medications: Current Medications Acetaminophen (Tylenol 325mg Tab) 650 mg PO Q6 PRN PRN Reason: Pain, severe (8-10) Last Admin: 07/05/16 13:43 Dose: 650 mg Acetylcysteine (Acetylcysteine 20%) 4 ml INH RQ6 [facility] Last Admin: 07/05/16 19:47 Dose: 4 ml Albuterol/Ipratropium (Duoneb 3 Mg/0.5 Mg (3 Ml) Ud) 3 ml INH RQ6 [facility] Last Admin: 07/05/16 19:47 Dose: 3 ml Carvedilol (Coreg) 25 mg PO BID [facility] BEDS AT [facility] Last Admin: 07/05/16 17:52 Dose: 25 mg Docusate Sodium (Colace) 100 mg PO BID PRN PRN Reason: Constipation Furosemide (Lasix) 20 mg IVP BID [facility] 234 BEDS AT [facility] Last Admin: 07/05/16 17:52 Dose: 20 mg Guaifenesin (Robitussin) 100 mg PO Q6H PRN PRN Reason: Cough Last Admin: 07/05/16 11:31 Dose: 100 mg Heparin Sodium (Porcine) (Heparin) 5,000 units SC Q8 [facility] 234 BEDS AT [facility] Last Admin: 07/05/16 13:41 Dose: 5,000 units Piperacillin Sod/Tazobactam Sod (Zosyn 3.375 Gm Iv Premix) 50 mls @ 100 mls/hr IVPB Q6H [facility] 234 BEDS AT [facility] Last Admin: 07/05/16 17:53 Dose: 100 mls/hr Azithromycin 500 mg/ Sodium (Chloride) 250 mls @ 167 mls/hr IVPB Q24H [facility] 234 B[facility]S AT [facility] Last Admin: 07/05/16 09:44 Dose: 167 mls/hr Insulin Human Regular (Novolin R) 0 unit SC ACHS [facility] PRN Reason: Protocol Last Admin: 07/05/16 17:19 Dose: Not Given Montelukast Sodium (Singulair) 10 mg PO [facility] Last Admin: 07/05/16 20:48 Dose: 10 mg Oseltamivir Phosphate (Tamiflu Cap) 75 mg PO BID [facility] 234 BEDS AT [facility] Stop: 07/08/16 23:04 Last Admin: 07/05/16 17:52 Dose: 75 mg Pantoprazole Sodium (Protonix Ec Tab) 40 mg PO DAILY [facility] 234 B[facility]S AT [facility] Last Admin: 07/05/16 10:14 Dose: 40 mg Rosuvastatin Calcium (Crestor) 10 mg PO [facility] Last Admin: 07/04/16 21:29 Dose: 10 mg - Labs Labs: 07/05/16 08:17 07/05/16 08:17
--- NOTE | 2016-07-05 21:21 | PN ---
DATE: 07/05/2016 The patient says she was not feeling that good and she will be having a procedure done tomorrow. She was wheezing. PHYSICAL EXAMINATION: VITAL SIGNS: Temperature 98, pulse 66, blood pressure 118/64, respirations are 20. HEENT: Head is atraumatic, normocephalic. Pupils are reacting to light. NECK: Supple. LUNGS: Had bilateral mild wheezing, especially on the left lung. HEART: S1, S2 regular. ABDOMEN: Soft, nontender, no guarding, no rigidity present. EXTREMITIES: Had no edema, clubbing or cyanosis. LABORATORY DATA: Noted. Labs show white count is 10.3, hemoglobin 10.1, hematocrit 31.5, platelet c ount is 316. She has a BUN of 15, creatinine of 1.1. Glucose also is being monitored. She is diabe tic, but has been well. Micro-nelson, the sputum culture is pending. Urine culture and blood cultures came out all negative. She is found to have a right middle lobe mass or obstruction and she came in with cough and wheezing and she is going to get bronchoscopy done to rule out malignancy. At this time, I will continue Zosyn, Zithromax and Tamiflu, as we have started. She is on acetylcyst eine, Montelukast. She is also on Lasix. We will follow. Other diagnoses, she remains with , anemia, diabetes mellitus, history of DVT in lower extremities and hypertension. Shana Jasmine MD cc: [id number] TT: 07/05/2016 21:20:37 Confirmation # [id number] Dictation # [id number] [email or web address]
[2016-07-06] MEDS: Acetylcysteine 20% Inhal Soln (4ml) INH SCH ×4 (01:05→18:56)
[2016-07-06] MEDS: Albuterol-Ipratrop 3 mg / 0.5 (3 ml) UD INH SCH ×3 (01:05→18:56)
[2016-07-06] MEDS: Piperacill/Tazo 3.375gm in Dex 50 ML IVPB SCH ×3 (05:40→13:00)
[2016-07-06] MEDS ORDERED: Sodium Chloride 0.9% 0 ML IV ONE (07:53)
[2016-07-06] MEDS ORDERED: EPINEPHrine 1 mg/ml (1:1000) Inj ONE (07:53)
--- NOTE | 2016-07-06 07:54 | CP.PCM.PN ---
<Yeyo Diez - Last Filed: 07/06/16 15:53> Subjective - Date & Time of Evaluation Date of Evaluation: 07/06/16 Time of Evaluation: 07:00 - Subjective Subjective: PGY1 Medicine Note - Dr. Hendrickson Patient seen and examined at bedside. No acute overnight events. Pt in no no acute distress, resting comfortably. Continue to c/o cough, now non- productive. Nervous about EBUS procedure today. Currently denies f/c, vision changes, palpitations, dyspnea at rest, abdominal pain, n/v, d/c, dysuria, lower extremity swelling, or any additional complaints. Objective - Vital Signs/Intake and Output Vital Signs (last 24 hours): Temp Pulse Resp BP Pulse Ox 98.6 F 62 20 145/67 97 07/05/16 23:30 07/06/16 05:45 07/05/16 23:30 07/06/16 05:45 07/05/16 23:30 - Medications Medications: Current Medications Acetaminophen (Tylenol 325mg Tab) 650 mg PO Q6 PRN PRN Reason: Pain, severe (8-10) Last Admin: 07/05/16 13:43 Dose: 650 mg Acetylcysteine (Acetylcysteine 20%) 4 ml INH RQ6 [facility] Last Admin: 07/06/16 01:05 Dose: 4 ml Albuterol/Ipratropium (Duoneb 3 Mg/0.5 Mg (3 Ml) Ud) 3 ml INH RQ6 [facility] Last Admin: 07/06/16 01:05 Dose: 3 ml Carvedilol (Coreg) 25 mg PO BID [facility] Last Admin: 07/06/16 05:39 Dose: 25 mg Docusate Sodium (Colace) 100 mg PO BID PRN PRN Reason: Constipation Furosemide (Lasix) 20 mg IVP BID [facility] Last Admin: 07/05/16 17:52 Dose: 20 mg Guaifenesin (Robitussin) 100 mg PO Q6H PRN PRN Reason: Cough Last Admin: 07/05/16 11:31 Dose: 100 mg Piperacillin Sod/Tazobactam Sod (Zosyn 3.375 Gm Iv Premix) 50 mls @ 100 mls/hr IVPB Q6H [facility] Last Admin: 07/06/16 05:40 Dose: 100 mls/hr Azithromycin 500 mg/ Sodium (Chloride) 250 mls @ 167 mls/hr IVPB Q24H [facility] Last Admin: 07/05/16 09:44 Dose: 167 mls/hr Insulin Human Regular (Novolin R) 0 unit SC ACHS [facility] PRN Reason: Protocol Last Admin: 07/05/16 17:19 Dose: Not Given Montelukast Sodium (Singulair) 10 mg PO HS [facility] Last Admin: 07/05/16 21:29 Dose: Not Given Oseltamivir Phosphate (Tamiflu Cap) 75 mg PO BID [facility] Stop: 07/08/16 23:04 Last Admin: 07/05/16 17:52 Dose: 75 mg Pantoprazole Sodium (Protonix Ec Tab) 40 mg PO DAILY [facility] Last Admin: 07/05/16 10:14 Dose: 40 mg Rosuvastatin Calcium (Crestor) 10 mg PO HS [facility] Last Admin: 07/05/16 21:26 Dose: 10 mg - Labs Labs: 07/05/16 08:17 07/05/16 08:17 - Additional Findings Additional findings: - Constitutional Appears: Non-toxic, No Acute Distress - Head Exam Head Exam: ATRAUMATIC, NORMAL INSPECTION, NORMOCEPHALIC - Eye Exam Eye Exam: Normal appearance, PERRL Pupil Exam: NORMAL ACCOMODATION - ENT Exam ENT Exam: Normal Exam - Neck Exam Neck exam: Positive for: Normal Inspection - Respiratory Exam Respiratory Exam: Normal Breathing Pattern absent: Rales, Rhonchi, Wheezes +cough, improving - Cardiovascular Exam Cardiovascular Exam: REGULAR RHYTHM, RRR, +S1, +S2. absent: Gallop, Rubs - GI/Abdominal Exam GI & Abdominal Exam: Normal Bowel Sounds. absent: Guarding, Soft, Tenderness - Extremities Exam Extremities exam: Positive for: normal inspection absent: Pedal edema - Back Exam Back exam: NORMAL INSPECTION - Psychiatric Exam Psychiatric exam: Normal Affect, Normal Mood - Skin Skin Exam: Normal Color, Warm Assessment and Plan - Assessment and Plan (Free Text) Assessment: Disposition: -Likely DC 07/07 to care home/rehab -PT recommends MARY on discharge Right Middle Lobe Lung Mass 07/06: EBUS procedure successful today, f/u results 07/05: Bronchoscopy in the am. NPO after midnight. Pulmonology Consult, Dr. Solo, f/u recs. -Consider Bronchoscopy for further evaluation and biopsy, will discuss with family -continue recommendations as per medicine team Pneumonia 07/06: Blood cult negative x3d; Sputum culture normal, bronchial washing pending. Stop IV Abx Azithromycin / Zosyn. 07/04: Chest CT - Rt lung mid lobe obstruction. Rales on lung exam. -> stop IVF. Pulmonology Consult, Dr. Solo, f/u recs. 07/03: repeat CXR shows elevated right hemidiaphragm. -CXR in the ED shows a right focal opacity see emr for full read on x:ray She also has Luecocytosis WBC of 14.7 with left shift no bandemia. Patient admitted to tele/inpatient She received Zosyn and Vanc in the ED, will continue Vanc 1 gram q12 and Zoysn 3.375gm Q5H IVPB. Dr. Jasmine consulted for ID, she was notified of the consult and will need to follow up on her recommendations or orders. Blood, urine, and sputum culture will need to be followe up on. Duoneb 3ml with Mucomyst every q6h, continue home Singular 10mg HS. Status: Acute Acute Systolic CHF (congestive heart failure) 07/05: Increase lasix to BID 07/04: Echo - EF 40-45%, mild TR, L vent dilated, systolic function mildly impaired. see full report. Patient's BNP is elevated, will order Echo. Lasix 20mg IVP BID monitor continuous, daily weight measurement Status: Acute Near syncope CT of the head is negative, patient put on fall precuations. Status: Acute Anemia 07/06: Hgb 9.9, stable 07/05: Hgb 10.1, stable Hgb approx 9.5 since admission. Monitor Diabetes mellitus Accuc checks ACHS with sliding scale medium protocol ordered. 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 Neither staff at care home or daughter knows why she was taken off Xarelto. Status: Chronic HTN (hypertension) 07/06:WNL, continue to monitor 07/04: BP 126/67 Coreg 25mg bid. Status: Acute Prophylactic measure Pepcid 20mg bid and Heparin 5000 units SC q8h Hold SCDs due to history of DVTs. Status: Acute <Yeyo Hendrickson H - Last Filed: 07/06/16 16:32> Objective - Vital Signs/Intake and Output Vital Signs (last 24 hours): Temp Pulse Resp BP Pulse Ox 98.2 F 71 20 110/64 98 07/06/16 15:46 07/06/16 15:46 07/06/16 15:46 07/06/16 15:46 07/06/16 15:46 Intake and Output: 07/06/16 07/06/16 06:59 18:59 Intake Total 210 650 Output Total 80 Balance 210 570 - Medications Medications: Current Medications Acetaminophen (Tylenol 325mg Tab) 650 mg PO Q6 PRN PRN Reason: Pain, severe (8-10) Last Admin: 07/05/16 13:43 Dose: 650 mg Acetylcysteine (Acetylcysteine 20%) 4 ml INH RQ6 [facility] Last Admin: 07/06/16 13:24 Dose: Not Given Albuterol/Ipratropium (Duoneb 3 Mg/0.5 Mg (3 Ml) Ud) 3 ml INH RQ6 [facility] Last Admin: 07/06/16 07:40 Dose: 3 ml Carvedilol (Coreg) 25 mg PO BID [facility] Last Admin: 07/06/16 10:16 Dose: Not Given Docusate Sodium (Colace) 100 mg PO BID PRN PRN Reason: Constipation Furosemide (Lasix) 20 mg IVP BID [facility] Last Admin: 07/06/16 11:00 Dose: 20 mg Guaifenesin (Robitussin) 100 mg PO Q6H PRN PRN Reason: Cough Last Admin: 07/05/16 11:31 Dose: 100 mg Insulin Human Regular (Novolin R) 0 unit SC ACHS [facility] PRN Reason: Protocol Last Admin: 07/06/16 12:29 Dose: Not Given Montelukast Sodium (Singulair) 10 mg PO HS [facility] Last Admin: 07/05/16 21:29 Dose: Not Given Oseltamivir Phosphate (Tamiflu Cap) 75 mg PO BID [facility] Stop: 07/08/16 23:04 Last Admin: 07/06/16 11:00 Dose: 75 mg Pantoprazole Sodium (Protonix Ec Tab) 40 mg PO DAILY [facility] Last Admin: 07/06/16 11:00 Dose: 40 mg Rosuvastatin Calcium (Crestor) 10 mg PO HS [facility] Last Admin: 07/05/16 21:26 Dose: 10 mg - Labs Labs: 07/06/16 07:51 07/06/16 07:51 PT 13.6 SECONDS (9.7-12.2) H 07/06/16 07:51 INR 1.2 07/06/16 07:51 Attending/Attestation - Attestation I have personally seen and examined this patient.: Yes I have fully participated in the care of the patient.: Yes I have reviewed all pertinent clinical information, including history, physical exam and plan: Yes Notes (Text): Medical attending: Patient was seen and examined by me. Agree with the above note by the resident. The patient when we saw her had returned from the bronchoscopy and was still sleepy and drowsy - however cooperative on exam. Biopsy were taken, plan is to let patient go back to care home tommorow, but she needs to follow up with pulmonology for the biospy results Yeyo Hendrickson
[2016-07-06 08:00] LABS: INR 1.2
[2016-07-06] MEDS ORDERED: Propofol 10 mg/ml Inj (20 ML) ONE (08:02)
[2016-07-06] MEDS ORDERED: Midazolam 2 MG/2 ML VIAL ONE (08:03)
[2016-07-06 08:08] LABS: BASO % 0.4 % (0.0-2.0); EOS # 0.3 K/uL (0.0-0.7); EOS % 4.1 % (0.0-4.0); HEMATOCRIT 29.8 % (34.0-47.0); LYMPH # 3.1 K/uL (1.0-4.3); LYMPH % 43.8 % (20.0-40.0); MEAN CELL VOLUME 78.9 fL (81.0-99.0); MEAN CORPUSCULAR HEMOGLOBIN 26.2 pg (27.0-31.0); MEAN CORPUSCULAR HGB CONC 33.3 g/dL (33.0-37.0); MEAN PLATELET VOLUME 7.8 fL (7.2-11.7); MONO # 0.7 K/uL (0.0-0.8); MONO % 10.3 % (0.0-10.0); RED CELL DISTRIBUTION WIDTH 16.5 % (11.5-14.5)
[2016-07-06] MEDS: (Novolin R) Insulin Human Regular 100 units/ml vial SC SCH ×4 (08:09→22:09)
[2016-07-06] MEDS ORDERED: Lactated Ringer's 1,000 ML IV ONE (08:15)
[2016-07-06 08:19] LABS: POTASSIUM 3.8 mmol/L (3.6-5.2)
[2016-07-06] MEDS ORDERED: Etomidate 20 mg/10ml Inj IV ONE (08:20)
[2016-07-06 08:21] LABS: ALB/GLOB RATIO 1.2 (1.0-2.1); BILIRUBIN,TOTAL 0.7 mg/dL (0.2-1.3); PHOSPHOROUS 3.9 mg/dL (2.5-4.5); TOTAL PROTEIN 7.4 g/dL (6.3-8.3)
[2016-07-06 08:22] LABS: CALCIUM 8.9 mg/dl (8.6-10.4)
[2016-07-06] MEDS ORDERED: Rocuronium 10 mg/ml (5 ml) ONE (08:36)
[2016-07-06] MEDS ORDERED: HYDROmorphone 0.5 mg/0.5 ml ISec IVP PRN (08:52)
--- NOTE | 2016-07-06 10:23 | RAD ---
PROCEDURE: CHEST RADIOGRAPH, 1 VIEW HISTORY: post op bronch r/o pnuemo COMPARISON: 07/03/[address] chest without contrast 07/03/2016 FINDINGS: LUNGS: The right mid to lower lung zone increase opacity which overlaps in appearance with an elevated right hemidiaphragm previously was suspicious for an obstructing consolidation at the level of the right middle lobe on CT. There were chest x-ray appearances similar. PLEURA: No pneumothorax is noted on this exam CARDIOVASCULAR: Mild cardiomegaly suggested OSSEOUS STRUCTURES: Shoulder arthrosis VISUALIZED UPPER ABDOMEN: Normal. OTHER FINDINGS: None. IMPRESSION: Status post bronchoscopy without pneumothorax appreciated. The right mid to lower lung zone consolidation blending with the asymmetrically elevated right hemidiaphragm with CT suggested an obstructing right middle lobe mass
--- NOTE | 2016-07-06 10:30 | CP.PCM.PN ---
Subjective - Date & Time of Evaluation Date of Evaluation: 07/06/16 Time of Evaluation: 07:50 - Subjective Subjective: Patient seen and examined at bedside, no acute distress, no acute events overnight. Patient was resting comfortably in bed and reports to be nervous about the EBUS today. Patient was reassured and given support. Patient still complains of some cough and dyspnea, but currently denies chest pain, palpitations, nausea, vomiting, fever, chills, headache at this time. Objective - Vital Signs/Intake and Output Vital Signs (last 24 hours): Temp Pulse Resp BP Pulse Ox 98.6 F 58 L 16 117/48 L 100 07/06/16 09:11 07/06/16 09:56 07/06/16 09:56 07/06/16 09:56 07/06/16 09:56 Intake and Output: 07/06/16 07/06/16 06:59 18:59 Intake Total 210 Output Total 80 Balance 210 -80 - Medications Medications: Current Medications Acetaminophen (Tylenol 325mg Tab) 650 mg PO Q6 PRN PRN Reason: Pain, severe (8-10) Last Admin: 07/05/16 13:43 Dose: 650 mg Acetylcysteine (Acetylcysteine 20%) 4 ml INH RQ6 [facility] Last Admin: 07/06/16 07:40 Dose: 4 ml Albuterol/Ipratropium (Duoneb 3 Mg/0.5 Mg (3 Ml) Ud) 3 ml INH RQ6 [facility] Last Admin: 07/06/16 07:40 Dose: 3 ml Carvedilol (Coreg) 25 mg PO BID [facility] Last Admin: 07/06/16 10:16 Dose: Not Given Docusate Sodium (Colace) 100 mg PO BID PRN PRN Reason: Constipation Furosemide (Lasix) 20 mg IVP BID [facility] Last Admin: 07/05/16 17:52 Dose: 20 mg Guaifenesin (Robitussin) 100 mg PO Q6H PRN PRN Reason: Cough Last Admin: 07/05/16 11:31 Dose: 100 mg Hydromorphone HCl (Dilaudid) 0.5 mg IVP Q15M PRN PRN Reason: Pain, severe (8-10) Stop: 07/06/16 10:52 Piperacillin Sod/Tazobactam Sod (Zosyn 3.375 Gm Iv Premix) 50 mls @ 100 mls/hr IVPB Q6H [facility] Last Admin: 07/06/16 05:40 Dose: 100 mls/hr Azithromycin 500 mg/ Sodium (Chloride) 250 mls @ 167 mls/hr IVPB Q24H [facility] Last Admin: 07/05/16 09:44 Dose: 167 mls/hr Insulin Human Regular (Novolin R) 0 unit SC ACHS [facility] PRN Reason: Protocol Last Admin: 07/06/16 08:09 Dose: Not Given Montelukast Sodium (Singulair) 10 mg PO HS [facility] Last Admin: 07/05/16 21:29 Dose: Not Given Oseltamivir Phosphate (Tamiflu Cap) 75 mg PO BID [facility] Stop: 07/08/16 23:04 Last Admin: 07/05/16 17:52 Dose: 75 mg Pantoprazole Sodium (Protonix Ec Tab) 40 mg PO DAILY [facility] Last Admin: 07/05/16 10:14 Dose: 40 mg Rosuvastatin Calcium (Crestor) 10 mg PO [facility] Last Admin: 07/05/16 21:26 Dose: 10 mg - Labs Labs: 07/06/16 07:51 07/06/16 07:51 PT 13.6 SECONDS (9.7-12.2) H 07/06/16 07:51 INR 1.2 07/06/16 07:51 - Constitutional Appears: Well, Non-toxic, No Acute Distress - Head Exam Head Exam: ATRAUMATIC, NORMAL INSPECTION - Eye Exam Eye Exam: Normal appearance - Respiratory Exam Respiratory Exam: Chest Wall Tenderness, Wheezes - Cardiovascular Exam Cardiovascular Exam: +S1, +S2 - Neurological Exam Neurological Exam: Alert, Awake, Oriented x3 - Skin Skin Exam: Dry, Normal Color, Warm Assessment and Plan - Assessment and Plan (Free Text) Plan: (1) Right Middle Lobe Lung Mass Cytology and Tissue biopsy sent to pathology
[2016-07-06] MEDS: Pantoprazole 40 mg EC Tab PO SCH (11:00)
[2016-07-06] MEDS: Azithromycin 500 MG in Sodium Chloride 0.9% 250 ML IVPB SCH (11:00)
--- NOTE | 2016-07-06 17:03 | CP.PCM.PN ---
Subjective - Date & Time of Evaluation Date of Evaluation: 07/06/16 Time of Evaluation: 04:00 - Subjective Subjective: dictated Objective - Vital Signs/Intake and Output Vital Signs (last 24 hours): Temp Pulse Resp BP Pulse Ox 98.2 F 71 20 110/64 98 07/06/16 15:46 07/06/16 15:46 07/06/16 15:46 07/06/16 15:46 07/06/16 15:46 Intake and Output: 07/06/16 07/06/16 06:59 18:59 Intake Total 210 650 Output Total 80 Balance 210 570 - Medications Medications: Current Medications Acetaminophen (Tylenol 325mg Tab) 650 mg PO Q6 PRN PRN Reason: Pain, severe (8-10) Last Admin: 07/05/16 13:43 Dose: 650 mg Acetylcysteine (Acetylcysteine 20%) 4 ml INH RQ6 [facility] Last Admin: 07/06/16 13:24 Dose: Not Given Albuterol/Ipratropium (Duoneb 3 Mg/0.5 Mg (3 Ml) Ud) 3 ml INH RQ6 [facility] Last Admin: 07/06/16 07:40 Dose: 3 ml Carvedilol (Coreg) 25 mg PO BID [facility] Last Admin: 07/06/16 10:16 Dose: Not Given Docusate Sodium (Colace) 100 mg PO BID PRN PRN Reason: Constipation Furosemide (Lasix) 20 mg IVP BID [facility] Last Admin: 07/06/16 11:00 Dose: 20 mg Guaifenesin (Robitussin) 100 mg PO Q6H PRN PRN Reason: Cough Last Admin: 07/05/16 11:31 Dose: 100 mg Insulin Human Regular (Novolin R) 0 unit SC ACHS [facility] PRN Reason: Protocol Last Admin: 07/06/16 12:29 Dose: Not Given Montelukast Sodium (Singulair) 10 mg PO HS [facility] Last Admin: 07/05/16 21:29 Dose: Not Given Oseltamivir Phosphate (Tamiflu Cap) 75 mg PO BID [facility] Stop: 07/08/16 23:04 Last Admin: 07/06/16 11:00 Dose: 75 mg Pantoprazole Sodium (Protonix Ec Tab) 40 mg PO DAILY [facility] Last Admin: 07/06/16 11:00 Dose: 40 mg Rosuvastatin Calcium (Crestor) 10 mg PO HS [facility] Last Admin: 07/05/16 21:26 Dose: 10 mg - Labs Labs: 07/06/16 07:51 07/06/16 07:51 PT 13.6 SECONDS (9.7-12.2) H 07/06/16 07:51 INR 1.2 07/06/16 07:51
[2016-07-06] MEDS: Piperacillin/Tazobact 3.375 GM in Sodium Chloride 100 ML IVPB SCH (18:00)
--- NOTE | 2016-07-06 18:10 | PN ---
DATE: 07/06/2016 The patient is still dyspneic. She is coughing a lot. She is trying to make her bed and lie down th ere. She is cold. PHYSICAL EXAMINATION: VITAL SIGNS: T-max is 98.2, pulse 71, blood pressure 110/62, respirations are 20. HEENT: Head is atraumatic, normocephalic. GENERAL: She is coughing a little more than the usual yesterday. NECK: Supple. LUNGS: Clear, however, no wheezing, no rhonchi heard. HEART: S1, S2 regular. ABDOMEN: Soft, nontender, no guarding, no rigidity present. EXTREMITIES: No edema, clubbing or cyanosis. LABORATORY DATA: White count is 7 today, her white count however was elevated. She is anemic. Crea tinine is 1.3. I will have to put back on Zosyn as I do not see her on that and we will follow. They may have disco ntinued during the OR and so she is restarted on Zosyn and C. diff has been ordered by ____ and [place]. C. diff is pending at this time. I will continue with the Zosyn and we are waiting to see what was obstructing her right middle bronchus and follow up with the pulmonary. Shana Jasmine MD cc: [id number] TT: 07/06/2016 18:09:28 Confirmation # [id number] Dictation # [id number] francesco
[2016-07-06] MEDS: guaiFENesin 100 mg/5 ml Syrup UD PO PRN (18:29)
[2016-07-07] MEDS: Piperacillin/Tazobact 3.375 GM in Sodium Chloride 100 ML IVPB SCH ×4 (00:04→17:05)
[2016-07-07] MEDS: Acetylcysteine 20% Inhal Soln (4ml) INH SCH ×4 (01:26→19:24)
[2016-07-07] MEDS: Albuterol-Ipratrop 3 mg / 0.5 (3 ml) UD INH SCH ×4 (01:26→19:24)
[2016-07-07 07:01] LABS: POTASSIUM 3.5 mmol/L (3.6-5.2)
[2016-07-07 07:03] LABS: ALB/GLOB RATIO 1.1 (1.0-2.1); BILIRUBIN,TOTAL 0.6 mg/dL (0.2-1.3)
[2016-07-07 07:04] LABS: CALCIUM 8.6 mg/dl (8.6-10.4); MAGNESIUM 1.8 mg/dL (1.6-2.3); PHOSPHOROUS 4.2 mg/dL (2.5-4.5)
[2016-07-07 07:11] LABS: BASO % 0.4 % (0.0-2.0); EOS # 0.4 K/uL (0.0-0.7); EOS % 4.8 % (0.0-4.0); HEMATOCRIT 30.5 % (34.0-47.0); LYMPH # 3.7 K/uL (1.0-4.3); LYMPH % 41.4 % (20.0-40.0); MEAN CELL VOLUME 79.5 fL (81.0-99.0); MEAN CORPUSCULAR HEMOGLOBIN 26.1 pg (27.0-31.0); MEAN CORPUSCULAR HGB CONC 32.8 g/dL (33.0-37.0); MEAN PLATELET VOLUME 7.6 fL (7.2-11.7); MONO # 0.9 K/uL (0.0-0.8); MONO % 10.5 % (0.0-10.0); RED CELL DISTRIBUTION WIDTH 16.6 % (11.5-14.5); WHITE BLOOD COUNT 8.9 K/uL (4.8-10.8)
--- NOTE | 2016-07-07 07:45 | OP ---
PROCEDURE DATE: 07/06/2016 PROCEDURE: Fiberoptic bronchoscopy followed by endobronchial ultrasound, transbronchial needle aspir ation biopsy. INDICATION: Lung mass. POSTOPERATIVE DIAGNOSIS: Lung mass. DESCRIPTION OF PROCEDURE: Fiberoptic bronchoscopy procedure and endobronchial ultrasound, transbronc hial needle aspiration biopsy was done after obtaining consent from patient through mining engineering technologist expla ining risks and benefits which she understood. The procedure was done under sedation and intubation by the anesthesiologist. First, the bronchoscope was passed through the ET tube into the trachea. T he main priscila was sharp. First, the bronchoscope passed on the left side. The left main, the left upper, the left lower lobe all appeared normal. No endobronchial lesions seen. Later, the bronchosc ope was pulled back and passed through the right side,. The right upper, the right lower and right m ain, the bronchus intermedius all appeared normal. No endobronchial lesion seen. Also, there was no endobronchial lesion seen in the right middle lobe, but a small amount of blood seen coming from the sub 1 segment which was suctioned out and under direct visualization, brushing and biopsy was done w hich the patient tolerated. Later, endobronchial ultrasound was passed through the ET tube and a bio psy was taken from station 10 and 11 without any complications. The patient tolerated the procedure well and expected blood loss 2-3 mL. Keshav Solo MD cc: [id number] TT: 07/06/2016 10:57:24 tn
[2016-07-07] MEDS: (Novolin R) Insulin Human Regular 100 units/ml vial SC SCH ×4 (08:10→21:25)
[2016-07-07] MEDS: guaiFENesin 100 mg/5 ml Syrup UD PO PRN ×2 (09:11→17:12)
--- NOTE | 2016-07-07 09:52 | CP.PCM.PN ---
Subjective - Date & Time of Evaluation Date of Evaluation: 07/07/16 Time of Evaluation: 09:00 Objective - Vital Signs/Intake and Output Vital Signs (last 24 hours): Temp Pulse Resp BP Pulse Ox 98.3 F 82 20 123/71 94 L 07/07/16 08:25 07/07/16 09:04 07/07/16 08:25 07/07/16 09:05 07/07/16 08:25 Intake and Output: 07/07/16 07/07/16 06:59 18:59 Intake Total 440 Balance 440 - Medications Medications: Current Medications Acetaminophen (Tylenol 325mg Tab) 650 mg PO Q6 PRN PRN Reason: Pain, severe (8-10) Last Admin: 07/07/16 09:11 Dose: 650 mg Acetylcysteine (Acetylcysteine 20%) 4 ml INH RQ6 [facility] Last Admin: 07/07/16 07:32 Dose: 4 ml Albuterol/Ipratropium (Duoneb 3 Mg/0.5 Mg (3 Ml) Ud) 3 ml INH RQ6 [facility] Last Admin: 07/07/16 07:32 Dose: 3 ml Carvedilol (Coreg) 25 mg PO BID [facility] Last Admin: 07/06/16 17:56 Dose: 25 mg Docusate Sodium (Colace) 100 mg PO BID PRN PRN Reason: Constipation Furosemide (Lasix) 20 mg IVP BID [facility] Last Admin: 07/07/16 09:05 Dose: 20 mg Guaifenesin (Robitussin) 100 mg PO Q6H PRN PRN Reason: Cough Last Admin: 07/07/16 09:11 Dose: 100 mg Piperacillin Sod/Tazobactam (Sod 3.375 gm/ Sodium Chloride) 100 mls @ 200 mls/ hr IVPB Q6H [facility] Last Admin: 07/07/16 05:55 Dose: 200 mls/hr Insulin Human Regular (Novolin R) 0 unit SC ACHS [facility] PRN Reason: Protocol Last Admin: 07/07/16 08:10 Dose: Not Given Montelukast Sodium (Singulair) 10 mg PO HS [facility] Last Admin: 07/06/16 21:19 Dose: 10 mg Oseltamivir Phosphate (Tamiflu Cap) 75 mg PO BID [facility] Stop: 07/08/16 23:04 Last Admin: 07/06/16 17:52 Dose: 75 mg Pantoprazole Sodium (Protonix Ec Tab) 40 mg PO DAILY [facility] Last Admin: 07/06/16 11:00 Dose: 40 mg Potassium Chloride (K-Dur 20 Meq Er Tab) 40 meq PO DAILY [facility] Rosuvastatin Calcium (Crestor) 10 mg PO HS [facility] Last Admin: 07/06/16 21:19 Dose: 10 mg - Labs Labs: 07/07/16 06:30 07/07/16 06:30 PT 13.6 SECONDS (9.7-12.2) H 07/06/16 07:51 INR 1.2 07/06/16 07:51 - Constitutional Appears: Well, Non-toxic, No Acute Distress - Head Exam Head Exam: ATRAUMATIC, NORMAL INSPECTION - Eye Exam Eye Exam: Normal appearance - ENT Exam ENT Exam: Normal Exam - Respiratory Exam Respiratory Exam: Wheezes. absent: Respiratory Distress - Cardiovascular Exam Cardiovascular Exam: +S1, +S2 - Neurological Exam Neurological Exam: Alert, Awake, Oriented x3 - Skin Skin Exam: Dry, Normal Color, Warm Assessment and Plan - Assessment and Plan (Free Text) Plan: (1) Right Middle Lobe Lung Mass Awaiting pathology report from EBUS biopsy Repeat CXR for hemoptysis and r/o pneumothorax continue recommendations by medicine team
[2016-07-07] MEDS: Potassium Chloride 20 mEq ER Tab PO SCH (10:18)
[2016-07-07] MEDS: Pantoprazole 40 mg EC Tab PO SCH (10:19)
--- NOTE | 2016-07-07 10:53 | RAD ---
HISTORY: hemoptysis COMPARISON: Comparison made with chest radiograph 07/06/2016. FINDINGS: LUNGS: Poor inspiration with low lung volumes, crowded bronchovascular markings and mild bibasilar atelectasis right greater than left. . Elevation of the right hemidiaphragm consistent with eventration. PLEURA: No definitive evidence of effusion or pneumothorax CARDIOVASCULAR: Effusion or pneumothorax. Heart size is borderline/mildly enlarged. OSSEOUS STRUCTURES: No significant abnormalities. VISUALIZED UPPER ABDOMEN: Normal. OTHER FINDINGS: None. IMPRESSION: Poor inspiration with low lung volumes, mild crowded bronchovascular markings and mild bibasilar atelectasis right greater than left. Eventration right hemidiaphragm. Mild cardiomegaly.
--- NOTE | 2016-07-07 15:17 | CP.PCM.PN ---
<Yeyo Diez - Last Filed: 07/07/16 20:50> Subjective - Date & Time of Evaluation Date of Evaluation: 07/07/16 Time of Evaluation: 08:00 - Subjective Subjective: PGY1 Medicine Note - Dr. Hendrickson Patient seen and examined at bedside. No acute overnight events. Pt in no no acute distress, resting comfortably. Continue to c/o cough, now non- productive. Nervous about EBUS procedure today. Currently denies f/c, vision changes, palpitations, dyspnea at rest, abdominal pain, n/v, d/c, dysuria, lower extremity swelling, or any additional complaints. Objective - Vital Signs/Intake and Output Vital Signs (last 24 hours): Temp Pulse Resp BP Pulse Ox 98.3 F 82 20 120/55 L 94 L 07/07/16 08:25 07/07/16 09:04 07/07/16 08:25 07/07/16 10:17 07/07/16 08:25 Intake and Output: 07/07/16 07/07/16 06:59 18:59 Intake Total 440 Balance 440 - Medications Medications: Current Medications Acetaminophen (Tylenol 325mg Tab) 650 mg PO Q6 PRN PRN Reason: Pain, severe (8-10) Last Admin: 07/07/16 09:11 Dose: 650 mg Acetylcysteine (Acetylcysteine 20%) 4 ml INH RQ6 [facility] Last Admin: 07/07/16 13:14 Dose: Not Given Albuterol/Ipratropium (Duoneb 3 Mg/0.5 Mg (3 Ml) Ud) 3 ml INH RQ6 [facility] Last Admin: 07/07/16 13:14 Dose: 3 ml Carvedilol (Coreg) 25 mg PO BID [facility] Last Admin: 07/07/16 10:17 Dose: 25 mg Docusate Sodium (Colace) 100 mg PO BID PRN PRN Reason: Constipation Furosemide (Lasix) 20 mg IVP BID [facility] Last Admin: 07/07/16 09:05 Dose: 20 mg Guaifenesin (Robitussin) 100 mg PO Q6H PRN PRN Reason: Cough Last Admin: 07/07/16 09:11 Dose: 100 mg Piperacillin Sod/Tazobactam (Sod 3.375 gm/ Sodium Chloride) 100 mls @ 200 mls/ hr IVPB Q6H [facility] Last Admin: 07/07/16 12:59 Dose: 200 mls/hr Insulin Human Regular (Novolin R) 0 unit SC ACHS [facility] PRN Reason: Protocol Last Admin: 07/07/16 12:30 Dose: Not Given Montelukast Sodium (Singulair) 10 mg PO HS [facility] Last Admin: 07/06/16 21:19 Dose: 10 mg Oseltamivir Phosphate (Tamiflu Cap) 75 mg PO BID [facility] Stop: 07/08/16 23:04 Last Admin: 07/07/16 10:20 Dose: 75 mg Pantoprazole Sodium (Protonix Ec Tab) 40 mg PO DAILY [facility] Last Admin: 07/07/16 10:19 Dose: 40 mg Potassium Chloride (K-Dur 20 Meq Er Tab) 40 meq PO DAILY [facility] Last Admin: 07/07/16 10:18 Dose: 40 meq Rosuvastatin Calcium (Crestor) 10 mg PO HS [facility] Last Admin: 07/06/16 21:19 Dose: 10 mg - Labs Labs: 07/07/16 06:30 07/07/16 06:30 PT 13.6 SECONDS (9.7-12.2) H 07/06/16 07:51 INR 1.2 07/06/16 07:51 - Additional Findings Additional findings: - Constitutional Appears: Non-toxic, No Acute Distress - Head Exam Head Exam: ATRAUMATIC, NORMAL INSPECTION, NORMOCEPHALIC - Eye Exam Eye Exam: Normal appearance, PERRL Pupil Exam: NORMAL ACCOMODATION - ENT Exam ENT Exam: Normal Exam - Neck Exam Neck exam: Positive for: Normal Inspection - Respiratory Exam Respiratory Exam: Normal Breathing Pattern absent: Rales, Rhonchi, Wheezes +cough, improving - Cardiovascular Exam Cardiovascular Exam: REGULAR RHYTHM, RRR, +S1, +S2. absent: Gallop, Rubs - GI/Abdominal Exam GI & Abdominal Exam: Normal Bowel Sounds. absent: Guarding, Soft, Tenderness - Extremities Exam Extremities exam: Positive for: normal inspection absent: Pedal edema - Back Exam Back exam: NORMAL INSPECTION - Psychiatric Exam Psychiatric exam: Normal Affect, Normal Mood - Skin Skin Exam: Normal Color, Warm Assessment and Plan - Assessment and Plan (Free Text) Assessment: Disposition: -Likely DC 07/08 to fdc/rehab -PT recommends [facility]ARY on discharge Right Middle Lobe Lung Mass 07/07: Awaiting pathology report from EBUS biopsy. Repeat CXR for hemoptysis and r /o pneumothorax. 07/07: Path report - negative for maligant cells. see full report. 07/07: Repeat CXR - mild crowded bronchovascular markings and mild bibasilar atelectasis right greater than left. Eventration right hemidiaphragm. Mild cardiomegaly. 07/06: EBUS procedure successful today, f/u results 07/05: Bronchoscopy in the am. NPO after midnight. Pulmonology Consult, Dr. Solo, f/u recs. -Consider Bronchoscopy for further evaluation and biopsy, will discuss with family -continue recommendations as per medicine team Pneumonia 07/06: Blood cult negative x3d; Sputum culture normal, bronchial washing pending. Stop IV Abx Azithromycin / Zosyn. 07/04: Chest CT - Rt lung mid lobe obstruction. Rales on lung exam. -> stop IVF. Pulmonology Consult, Dr. Solo, f/u recs. 07/03: repeat CXR shows elevated right hemidiaphragm. -CXR in the ED shows a right focal opacity see emr for full read on x:ray She also has Luecocytosis WBC of 14.7 with left shift no bandemia. Patient admitted to tele/inpatient She received Zosyn and Vanc in the ED, will continue Vanc 1 gram q12 and Zoysn 3.375gm Q5H IVPB. Dr. Jasmine consulted for ID, she was notified of the consult and will need to follow up on her recommendations or orders. Blood, urine, and sputum culture will need to be followe up on. Duoneb 3ml with Mucomyst every q6h, continue home Singular 10mg HS. Status: Acute Acute Systolic CHF (congestive heart failure) 07/05: Increase lasix to BID 07/04: Echo - EF 40-45%, mild TR, L vent dilated, systolic function mildly impaired. see full report. Patient's BNP is elevated, will order Echo. Lasix 20mg IVP BID monitor continuous, daily weight measurement Status: Acute Near syncope CT of the head is negative, patient put on fall precuations. Status: Acute Anemia 07/06: Hgb 9.9, stable 07/05: Hgb 10.1, stable Hgb approx 9.5 since admission. Monitor Diabetes mellitus Accuc checks ACHS with sliding scale medium protocol ordered. 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 Neither staff at fdc or daughter knows why she was taken off Xarelto. Status: Chronic HTN (hypertension) 07/06-07/07: WNL, continue to monitor 07/04: BP 126/67 Coreg 25mg bid. Status: Acute Prophylactic measure Pepcid 20mg bid and Heparin 5000 units SC q8h Hold SCDs due to history of DVTs. Status: Acute <Yeyo Hendrickson H - Last Filed: 07/08/16 08:16> Objective - Vital Signs/Intake and Output Vital Signs (last 24 hours): Temp Pulse Resp BP Pulse Ox 97.6 F 74 20 169/74 H 97 07/08/16 07:05 07/08/16 07:05 07/08/16 07:05 07/08/16 07:05 07/08/16 07:05 Intake and Output: 07/08/16 07/08/16 06:59 18:59 Intake Total 640 Output Total 1100 Balance -460 - Medications Medications: Current Medications Acetaminophen (Tylenol 325mg Tab) 650 mg PO Q6 PRN PRN Reason: Pain, severe (8-10) Last Admin: 07/07/16 09:11 Dose: 650 mg Acetylcysteine (Acetylcysteine 20%) 4 ml INH RQ6 [facility] Last Admin: 07/08/16 01:38 Dose: 4 ml Albuterol/Ipratropium (Duoneb 3 Mg/0.5 Mg (3 Ml) Ud) 3 ml INH RQ6 [facility] Last Admin: 07/08/16 01:38 Dose: 3 ml Carvedilol (Coreg) 25 mg PO BID [facility] Last Admin: 07/07/16 17:08 Dose: 25 mg Docusate Sodium (Colace) 100 mg PO BID PRN PRN Reason: Constipation Furosemide (Lasix) 20 mg IVP BID [facility] Last Admin: 07/07/16 17:08 Dose: 20 mg Guaifenesin (Robitussin) 100 mg PO Q6H PRN PRN Reason: Cough Last Admin: 07/07/16 17:12 Dose: 100 mg Piperacillin Sod/Tazobactam (Sod 3.375 gm/ Sodium Chloride) 100 mls @ 200 mls/ hr IVPB Q6H [facility] Last Admin: 07/08/16 05:16 Dose: 200 mls/hr Insulin Human Regular (Novolin R) 0 unit SC ACHS [facility] PRN Reason: Protocol Last Admin: 07/08/16 07:49 Dose: Not Given Montelukast Sodium (Singulair) 10 mg PO HS [facility] Last Admin: 07/07/16 21:10 Dose: 10 mg Oseltamivir Phosphate (Tamiflu Cap) 75 mg PO BID [facility] Stop: 07/08/16 23:04 Last Admin: 07/07/16 17:09 Dose: 75 mg Pantoprazole Sodium (Protonix Ec Tab) 40 mg PO DAILY [facility] Last Admin: 07/07/16 10:19 Dose: 40 mg Potassium Chloride (K-Dur 20 Meq Er Tab) 40 meq PO DAILY [facility] Last Admin: 07/07/16 10:18 Dose: 40 meq Rosuvastatin Calcium (Crestor) 10 mg PO HS [facility] Last Admin: 07/07/16 21:09 Dose: 10 mg - Labs Labs: 07/08/16 05:53 07/08/16 05:53 PT 13.6 SECONDS (9.7-12.2) H 07/06/16 07:51 INR 1.2 07/06/16 07:51 Attending/Attestation - Attestation I have personally seen and examined this patient.: Yes I have fully participated in the care of the patient.: Yes I have reviewed all pertinent clinical information, including history, physical exam and plan: Yes Notes (Text): Medical attending: Patient was seen and examined by me, agrees the above note by medical device assembler. She reported that her breathing was stable she denied having any pain. We had thought about discharging the patient back to her fdc however per advice of pulmonology we should observe the patient for another day in case there is any bleeding from the area of the bronchoscopy/ biopsy. Yeyo Hendrickson
--- NOTE | 2016-07-07 15:52 | CP.PCM.PN ---
Subjective - Date & Time of Evaluation Date of Evaluation: 07/07/16 Time of Evaluation: 03:00 - Subjective Subjective: dictated Objective - Vital Signs/Intake and Output Vital Signs (last 24 hours): Temp Pulse Resp BP Pulse Ox 98.3 F 82 20 120/55 L 94 L 07/07/16 08:25 07/07/16 09:04 07/07/16 08:25 07/07/16 10:17 07/07/16 08:25 Intake and Output: 07/07/16 07/07/16 06:59 18:59 Intake Total 440 450 Balance 440 450 - Medications Medications: Current Medications Acetaminophen (Tylenol 325mg Tab) 650 mg PO Q6 PRN PRN Reason: Pain, severe (8-10) Last Admin: 07/07/16 09:11 Dose: 650 mg Acetylcysteine (Acetylcysteine 20%) 4 ml INH RQ6 [facility] Last Admin: 07/07/16 13:14 Dose: Not Given Albuterol/Ipratropium (Duoneb 3 Mg/0.5 Mg (3 Ml) Ud) 3 ml INH RQ6 [facility] Last Admin: 07/07/16 13:14 Dose: 3 ml Carvedilol (Coreg) 25 mg PO BID [facility] Last Admin: 07/07/16 10:17 Dose: 25 mg Docusate Sodium (Colace) 100 mg PO BID PRN PRN Reason: Constipation Furosemide (Lasix) 20 mg IVP BID [facility] Last Admin: 07/07/16 09:05 Dose: 20 mg Guaifenesin (Robitussin) 100 mg PO Q6H PRN PRN Reason: Cough Last Admin: 07/07/16 09:11 Dose: 100 mg Piperacillin Sod/Tazobactam (Sod 3.375 gm/ Sodium Chloride) 100 mls @ 200 mls/ hr IVPB Q6H [facility] Last Admin: 07/07/16 12:59 Dose: 200 mls/hr Insulin Human Regular (Novolin R) 0 unit SC ACHS [facility] PRN Reason: Protocol Last Admin: 07/07/16 12:30 Dose: Not Given Montelukast Sodium (Singulair) 10 mg PO HS [facility] Last Admin: 07/06/16 21:19 Dose: 10 mg Oseltamivir Phosphate (Tamiflu Cap) 75 mg PO BID [facility] Stop: 07/08/16 23:04 Last Admin: 07/07/16 10:20 Dose: 75 mg Pantoprazole Sodium (Protonix Ec Tab) 40 mg PO DAILY [facility] Last Admin: 07/07/16 10:19 Dose: 40 mg Potassium Chloride (K-Dur 20 Meq Er Tab) 40 meq PO DAILY [facility] Last Admin: 07/07/16 10:18 Dose: 40 meq Rosuvastatin Calcium (Crestor) 10 mg PO HS [facility] Last Admin: 07/06/16 21:19 Dose: 10 mg - Labs Labs: 07/07/16 06:30 07/07/16 06:30 PT 13.6 SECONDS (9.7-12.2) H 07/06/16 07:51 INR 1.2 07/06/16 07:51
--- NOTE | 2016-07-07 20:32 | PN ---
DATE: 07/07/2016 SUBJECTIVE: The patient is afebrile. She had a bronch done yesterday. She is having trouble taking deep breaths at this time; however, she does not complain of any pain. She says she is slightly bet ter. PHYSICAL EXAMINATION: VITAL SIGNS: Blood pressure is 122/55, respirations are 20, saturations 94. HEENT: Head is atraumatic, normocephalic. NECK: Supple. LUNGS: Have normal breath sounds. No wheezing, no rhonchi, but when I asked her to take a deep abdi th, she starts to cough. HEART: S1, S2 regular. ABDOMEN: Soft, nontender, no guarding, no rigidity present. EXTREMITIES: No edema. LABORATORY DATA: White count is 8.9, hemoglobin 10, hematocrit 30.5, platelet count is 337. She is on Zosyn and her creatinine is 1.3. We are waiting for legionella. Mycoplasma was negative. She di d have a growth in the right middle bronchus and right middle lobe and we are looking for pathology r eports as well as for the culture reports from the bronchoscopy. Shana Jasmine MD cc: [id number] TT: 07/07/2016 20:31:48 Confirmation # [id number] Dictation # [id number]
[2016-07-08] MEDS: Piperacillin/Tazobact 3.375 GM in Sodium Chloride 100 ML IVPB SCH ×3 (00:09→12:43)
[2016-07-08] MEDS: Albuterol-Ipratrop 3 mg / 0.5 (3 ml) UD INH SCH ×4 (01:38→19:05)
[2016-07-08] MEDS: Acetylcysteine 20% Inhal Soln (4ml) INH SCH ×4 (01:38→19:05)
[2016-07-08 05:58] LABS: BASO # 0.1 K/uL (0.0-0.2); BASO % 0.6 % (0.0-2.0); EOS # 0.7 K/uL (0.0-0.7); EOS % 6.5 % (0.0-4.0); HEMATOCRIT 27.7 % (34.0-47.0); LYMPH # 4.1 K/uL (1.0-4.3); LYMPH % 40.1 % (20.0-40.0); MEAN CELL VOLUME 78.8 fL (81.0-99.0); MEAN CORPUSCULAR HEMOGLOBIN 26.1 pg (27.0-31.0); MEAN CORPUSCULAR HGB CONC 33.2 g/dL (33.0-37.0); MEAN PLATELET VOLUME 7.3 fL (7.2-11.7); MONO # 0.8 K/uL (0.0-0.8); MONO % 7.7 % (0.0-10.0); RED CELL DISTRIBUTION WIDTH 16.3 % (11.5-14.5); WHITE BLOOD COUNT 10.1 K/uL (4.8-10.8)
[2016-07-08 06:16] LABS: POTASSIUM 3.4 mmol/L (3.6-5.2)
[2016-07-08 06:18] LABS: ALB/GLOB RATIO 1.1 (1.0-2.1); BILIRUBIN,TOTAL 0.6 mg/dL (0.2-1.3); TOTAL PROTEIN 6.6 g/dL (6.3-8.3)
[2016-07-08 06:19] LABS: CALCIUM 8.5 mg/dl (8.6-10.4); MAGNESIUM 1.8 mg/dL (1.6-2.3); PHOSPHOROUS 3.8 mg/dL (2.5-4.5)
[2016-07-08] MEDS: (Novolin R) Insulin Human Regular 100 units/ml vial SC SCH ×3 (07:49→17:50)
[2016-07-08 08:01] VITALS: O2SAT 97
[2016-07-08] MEDS ORDERED: Vancomycin 1 gm/NS 200 ml 200 ML IVPB SCH (09:30)
[2016-07-08] MEDS: Potassium Chloride 20 mEq ER Tab PO SCH (10:54)
[2016-07-08] MEDS: Pantoprazole 40 mg EC Tab PO SCH (10:54)
[2016-07-08] MEDS: guaiFENesin 100 mg/5 ml Syrup UD PO PRN (11:04)
[2016-07-08 17:49] VITALS: BP 122/67; PULSE 69; RESP 22; TEMP 98
--- NOTE | 2016-07-08 20:18 | CP.PCM.PN ---
Subjective - Date & Time of Evaluation Date of Evaluation: 07/08/16 Time of Evaluation: 20:15 - Subjective Subjective: Patient seen and examined at bedside. No acute overnight events. Pt in no no acute distress, resting comfortably Objective - Vital Signs/Intake and Output Vital Signs (last 24 hours): Temp Pulse Resp BP Pulse Ox 98.0 F 69 22 122/67 97 07/08/16 16:00 07/08/16 16:00 07/08/16 16:00 07/08/16 17:49 07/08/16 16:00 Intake and Output: 07/08/16 07/09/16 18:59 06:59 Intake Total 500 Balance 500 - Medications Medications: Current Medications Acetaminophen (Tylenol 325mg Tab) 650 mg PO Q6 PRN PRN Reason: Pain, severe (8-10) Last Admin: 07/07/16 09:11 Dose: 650 mg Acetylcysteine (Acetylcysteine 20%) 4 ml INH RQ6 [facility] Last Admin: 07/08/16 19:05 Dose: 4 ml Albuterol/Ipratropium (Duoneb 3 Mg/0.5 Mg (3 Ml) Ud) 3 ml INH RQ6 [facility] Last Admin: 07/08/16 19:05 Dose: 3 ml Carvedilol (Coreg) 25 mg PO BID [facility] Last Admin: 07/08/16 17:48 Dose: 25 mg Docusate Sodium (Colace) 100 mg PO BID PRN PRN Reason: Constipation Furosemide (Lasix) 20 mg PO DAILY [facility] Last Admin: 07/08/16 17:49 Dose: 20 mg Guaifenesin (Robitussin) 100 mg PO Q6H PRN PRN Reason: Cough Last Admin: 07/08/16 11:04 Dose: 100 mg Insulin Human Regular (Novolin R) 0 unit SC ACHS [facility] PRN Reason: Protocol Last Admin: 07/08/16 17:50 Dose: Not Given Lisinopril (Zestril) 2.5 mg PO DAILY [facility] Last Admin: 07/08/16 17:54 Dose: Not Given Montelukast Sodium (Singulair) 10 mg PO HS [facility] Last Admin: 07/07/16 21:10 Dose: 10 mg Moxifloxacin HCl (Avelox) 400 mg PO DAILY [facility] Last Admin: 07/08/16 17:48 Dose: 400 mg Pantoprazole Sodium (Protonix Ec Tab) 40 mg PO DAILY [facility] Last Admin: 07/08/16 10:54 Dose: 40 mg Potassium Chloride (K-Dur 20 Meq Er Tab) 40 meq PO DAILY [facility] Last Admin: 07/08/16 10:54 Dose: 40 meq Rosuvastatin Calcium (Crestor) 10 mg PO HS [facility] Last Admin: 07/07/16 21:09 Dose: 10 mg - Labs Labs: 07/08/16 05:53 07/08/16 05:53 PT 13.6 SECONDS (9.7-12.2) H 07/06/16 07:51 INR 1.2 07/06/16 07:51 - Head Exam Head Exam: ATRAUMATIC, NORMOCEPHALIC - Eye Exam Eye Exam: Normal appearance - ENT Exam ENT Exam: Mucous Membranes Moist - Respiratory Exam Respiratory Exam: Clear to Ausculation Bilateral - Cardiovascular Exam Cardiovascular Exam: REGULAR RHYTHM - GI/Abdominal Exam GI & Abdominal Exam: Soft, Normal Bowel Sounds Assessment and Plan (1) Pneumonia Assessment & Plan: Status post bronchoscopy and biopsy awaiting the results Competent of cough productive of blood-tinged phlegm which is most likely secondary to biopsy Continue antibiotics and transfer [facility] to a [facility] Follow up in the office and repeat CAT scan of the chest Status: Acute
--- NOTE | 2016-07-08 21:29 | CP.PCM.DIS ---
<Yeyo Diez - Last Filed: 07/08/16 22:34> Provider - Provider Date of Admission: 07/02/16 17:31 Attending physician: Charles Cox MD Consults: Pulm: Dr. Solo Time Spent in preparation of Discharge (in minutes): 40 Hospital Course - Lab Results Lab Results: Micro Results 07/08/16 Unknown Rectum Ova and Parasite Concentrate Exam - Final 07/06/16 09:23 Body Fluid - Bronchial Washing Gram Stain - Final 07/06/16 09:23 Body Fluid - Bronchial Washing Body Fluid Culture - Preliminary Gram Positive Cocci 07/06/16 09:24 Other: Please Indicate Mycobacterial Culture - Preliminary 07/04/16 09:28 Sputum Gram Stain - Final 07/04/16 09:28 Sputum Sputum Culture - Final NORMAL ORAL SY 07/04/16 01:33 Urine,Clean Catch Urine Culture - Final No Growth (<1,000 CFU/ML) Most Recent Lab Values WBC 10.1 K/uL (4.8-10.8) 07/08/16 05:53 RBC 3.51 Mil/uL (3.80-5.20) L 07/08/16 05:53 Hgb 9.2 g/dL (11.0-16.0) L 07/08/16 05:53 Hct 27.7 % (34.0-47.0) L 07/08/16 05:53 MCV 78.8 fL (81.0-99.0) L 07/08/16 05:53 MCH 26.1 pg (27.0-31.0) L 07/08/16 05:53 MCHC 33.2 g/dL (33.0-37.0) 07/08/16 05:53 RDW 16.3 % (11.5-14.5) H 07/08/16 05:53 Plt Count 330 K/uL (130-400) 07/08/16 05:53 MPV 7.3 fL (7.2-11.7) 07/08/16 05:53 Neut % (Auto) 45.1 % (50.0-75.0) L 07/08/16 05:53 Lymph % (Auto) 40.1 % (20.0-40.0) H 07/08/16 05:53 [place] % (Auto) 7.7 % (0.0-10.0) 07/08/16 05:53 Eos % (Auto) 6.5 % (0.0-4.0) H 07/08/16 05:53 Baso % (Auto) 0.6 % (0.0-2.0) 07/08/16 05:53 Neut # 4.6 K/uL (1.8-7.0) 07/08/16 05:53 Lymph # 4.1 K/uL (1.0-4.3) 07/08/16 05:53 [place] # 0.8 K/uL (0.0-0.8) 07/08/16 05:53 Eos # 0.7 K/uL (0.0-0.7) 07/08/16 05:53 Baso # 0.1 K/uL (0.0-0.2) 07/08/16 05:53 PT 13.6 SECONDS (9.7-12.2) H 07/06/16 07:51 INR 1.2 07/06/16 07:51 Puncture Site Rra 07/02/16 18:05 pCO2 31 mm/Hg (35-45) L 07/02/16 18:05 pO2 82 mm/Hg (80-100) 07/02/16 18:05 HCO3 25.2 mmol/L (21-28) 07/02/16 18:05 ABG pH 7.48 (7.35-7.45) H 07/02/16 18:05 ABG Total CO2 24.1 mmol/L (22-28) 07/02/16 18:05 ABG O2 Saturation 98.6 % (95-98) H 07/02/16 18:05 ABG Base Excess 0.4 mmol/L (-2.0-3.0) 07/02/16 18:05 Jhon Test Pos 07/02/16 18:05 ABG Potassium 3.5 mmol/L (3.6-5.2) L 07/02/16 18:05 A-a O2 Difference 29.0 mm/Hg 07/02/16 18:05 Respiratory Index 0.4 07/02/16 18:05 Sodium 140.0 mmol/l (132-148) 07/02/16 18:05 Chloride 113.0 mmol/L (98-107) H 07/02/16 18:05 Glucose 133 mg/dl (65-105) H 07/02/16 18:05 Lactate 0.5 mmol/L (0.7-2.1) L 07/02/16 18:05 FiO2 21.0 % 07/02/16 18:05 Sodium 149 mmol/L (132-148) H 07/08/16 05:53 Potassium 3.4 mmol/L (3.6-5.2) L 07/08/16 05:53 Chloride 104 mmol/L (98-107) 07/08/16 05:53 Carbon Dioxide 22 mmol/L (22-30) 07/08/16 05:53 Anion Gap 26 (10-20) H 07/08/16 05:53 BUN 20 mg/dL (7-17) H 07/08/16 05:53 Creatinine 1.3 MG/DL (0.7-1.2) H 07/08/16 05:53 Est GFR ( Amer) 48 07/08/16 05:53 Est GFR (Non-Af Amer) 40 07/08/16 05:53 POC Glucose (mg/dL) 107 mg/dL (65-110) 07/08/16 16:36 Random Glucose 115 mg/dL (65-105) H 07/08/16 05:53 Hemoglobin A1c 6.6 % (4.2-6.5) H 07/03/16 06:46 Calcium 8.5 mg/dl (8.6-10.4) L 07/08/16 05:53 Phosphorus 3.8 mg/dL (2.5-4.5) 07/08/16 05:53 Magnesium 1.8 mg/dL (1.6-2.3) 07/08/16 05:53 Total Bilirubin 0.6 mg/dL (0.2-1.3) 07/08/16 05:53 AST 31 U/L (14-36) 07/08/16 05:53 ALT 35 U/L (9-52) 07/08/16 05:53 Alkaline Phosphatase 67 U/L (38-126) 07/08/16 05:53 Troponin I < 0.0120 ng/mL (0.00-0.120) 07/02/16 15:48 NT-Pro-B Natriuret Pep 2150 pg/mL (0-900) H 07/02/16 15:48 Total Protein 6.6 g/dL (6.3-8.3) 07/08/16 05:53 Albumin 3.4 g/dL (3.5-5.0) L 07/08/16 05:53 Globulin 3.2 gm/dL (2.2-3.9) 07/08/16 05:53 Albumin/Globulin Ratio 1.1 (1.0-2.1) 07/08/16 05:53 Triglycerides 86 mg/dL (0-149) 07/03/16 06:46 Cholesterol 65 mg/dL (0-199) 07/03/16 06:46 LDL Cholesterol Direct < 30 mg/dL (0-129) 07/03/16 06:46 HDL Cholesterol 23 mg/dL (30-70) L 07/03/16 06:46 Free T4 0.97 ng/dL (0.78-2.19) 07/03/16 06:46 TSH 3rd Generation 1.20 mIU/L (0.46-4.68) 07/03/16 06:46 Arterial Blood Potassium 3.5 mmol/L (3.6-5.2) L 07/02/16 18:05 Urine Color Yellow (YELLOW) 07/02/16 17:16 Urine Clarity Hazy (Clear) 07/02/16 17:16 Urine pH 6.0 (5.0-8.0) 07/02/16 17:16 Ur Specific [place] 1.012 (1.003-1.030) 07/02/16 17:16 Urine Protein 1+ mg/dL (NEGATIVE) H 07/02/16 17:16 Urine Glucose (UA) Normal mg/dL (Normal) 07/02/16 17:16 Urine Ketones Negative mg/dL (NEGATIVE) 07/02/16 17:16 Urine Blood Negative (NEGATIVE) 07/02/16 17:16 Urine Nitrate Negative (NEGATIVE) 07/02/16 17:16 Urine Bilirubin Negative (NEGATIVE) 07/02/16 17:16 Urine Urobilinogen Normal mg/dL (0.2-1.0) 07/02/16 17:16 Ur Leukocyte Esterase Trace Margarita/uL (Negative) 07/02/16 17:16 Urine WBC (Auto) 8 /hpf (0-5) H 07/02/16 17:16 Urine RBC (Auto) 2 /hpf (0-3) 07/02/16 17:16 Ur Squamous Epith Cells 18 /hpf (0-5) H 07/02/16 17:16 Urine Bacteria Many (<OCC) H 07/02/16 17:16 Stool Leukocytes, Qual Positive (NEGATIVE) H 07/05/16 Unknown C. difficile Ag & Toxin Negative (NEGATIVE) 07/05/16 Unknown Influenza Typ A,B (EIA) Negative for flu a/b (NEGATIVE) 07/04/16 16:10 Ur L.pneumophila Ag Negative (NEGATIVE) 07/03/16 06:00 Mycoplasma pneumon IgM Negative (NEGATIVE) 07/03/16 06:46 - Hospital Course Hospital Course: Upon hospital admission: Patient is a 76 year old Belarusian speaking patient with a history of HTN, COPD, HTN, and DM comes to the ED after falling and hitting her on the wall. Patient was interviewed through a air crew member. She was going to the bathroom when she felt dizzy and hit her head on the side of the wall. She has been complaining of worsening productive cough with green sputum , fever, chills, and chest pain. She says she has been having chronic chest pain for many years but that over the past few days she has been having chest congestion and cough with fever and chills. Patient comes from a shelter and according to her daughter is able to ambulate on her own with assistance. She denies changes in vision, hearing, nausea, vomiting, diarrhea, dysuria, palpitations, shortness of breath, lower extremity swelling but admits o chronic joint pain. PMH: see above PSH: appendectomy, cholestectomy PFH: patient denies SH: Lives at [facility], former smoker, denies etoh, or illicit drug use. Allergies: NKDA PMD: Frank During hospital course, the patient was evaluated and treated for the following : (1) Right Middle Lobe Lung Mass for which Pulmonology Consult was placed to Dr. Solo who performed a EBUS procedure on 07/06 - with preliminary Path report - negative for maligant cells. Dr. Solo will see the patient in an outpatient setting to review further results. (2) Pneumonia with Chest CT showing Rt lung mid lobe obstruction and Rales on physical lung exam. Luecocytosis WBC of 14.7 with left shift no bandemia. She received Zosyn and Vanc in the ED, will continue Vanc 1 gram q12 and Zoysn 3.375gm Q5H IVPB. Dr. Jasmine consulted for ID. 07/06 Blood cult negative x3d; Sputum culture normal, bronchial washing pending. Stop IV Abx Azithromycin / Zosyn. Also tx with Duoneb 3ml with Mucomyst every q6h, and home Singular 10mg HS. (3) Acute Systolic CHF ( congestive heart failure) for which pt tx with Lasix 20mg IVP BID. 07/04: Echo - EF 40-45%, mild TR, L vent dilated, systolic function mildly impaired. see full report. (4) Anemia stable in 's - . (5) Diabetes mellitus tx with Accuc checks ACHS with sliding scale medium protocol ordered. (6) Hyperlipidemia 07/03: Triglyc 86; Cholest 65; LDL <30; HDL 23 L. Tx with Crestor 10mg HS. (6) HTN ( hypertension) tx with Coreg 25mg bid. Upon hospital discharge, the patient was provided with the following instructions: Patient is stable for discharge per Dr. Hendrickson, to [facility]. Patient should resume all medications as outlined in this document. Additionally , patient should take the new medications listed below. 1. Please make an appointment and follow up with your Primary Doctor, Dr. Marie within one week of discharge. If patient does not have a Primary Doctor, please follow up with [facility] to establish medical care, at [phone]. 2. Please make an appointment and follow up with Dr. Solo (Pulmonology) within one week of discharge. He will discuss your finding of Right Middle Lobe Lung Mass and the results of the pathology report from your EBUS procedure. Patient should return to ED immediately if symptoms return or worsen. Instructions discussed with patient who understood and agreed. Newly prescribed medications: Lasix 20mg PO daily Lisinopril 2.5mg PO daily Avelox 400mg PO daily (take for 5 days) This is a summary of the patient's hospital admission, see chart for comprehensive detail. - Date & Time of H&P Date of H&P: 07/02/16 Time of H&P: 18:42 Discharge Exam - Additional Findings Additional findings: - Constitutional Appears: Non-toxic, No Acute Distress - Head Exam Head Exam: ATRAUMATIC, NORMAL INSPECTION, NORMOCEPHALIC - Eye Exam Eye Exam: Normal appearance, PERRL Pupil Exam: NORMAL ACCOMODATION - ENT Exam ENT Exam: Normal Exam - Neck Exam Neck exam: Positive for: Normal Inspection - Respiratory Exam Respiratory Exam: Normal Breathing Pattern absent: Rales, Rhonchi, Wheezes +cough, improving - Cardiovascular Exam Cardiovascular Exam: REGULAR RHYTHM, RRR, +S1, +S2. absent: Gallop, Rubs - GI/Abdominal Exam GI & Abdominal Exam: Normal Bowel Sounds. absent: Guarding, Soft, Tenderness - Extremities Exam Extremities exam: Positive for: normal inspection absent: Pedal edema - Back Exam Back exam: NORMAL INSPECTION - Psychiatric Exam Psychiatric exam: Normal Affect, Normal Mood - Skin Skin Exam: Normal Color, Warm Discharge Plan - Follow Up Plan Condition: FAIR Disposition: OTHER INSTITUTION Instructions: Heart Failure (DC), Heart Healthy Diet (DC), Pneumonia (DC) Additional Instructions: Patient is stable for discharge per Dr. Hendrickson, [facility]. Patient should resume all medications as outlined in this document. Additionally, patient should take the new medications listed below. 1. Please make an appointment and follow up with your Primary Doctor, Dr. Marie within one week of discharge. If patient does not have a Primary Doctor, please follow up with [facility] to establish medical care, at [phone]. 2. Please make an appointment and follow up with Dr. Solo (Pulmonology) within one week of discharge. He will discuss your finding of Right Middle Lobe Lung Mass and the results of the pathology report from your EBUS procedure. Patient should return to ED immediately if symptoms return or worsen. Instructions discussed with patient who understood and agreed. Newly prescribed medications: Lasix 20mg PO daily Lisinopril 2.5mg PO daily Avelox 400mg PO daily (take for 5 days) Referrals: Keshav Solo MD [Staff Provider] - Clinical Quality Measures - CQM - Heart Failure Ejection Fraction: 40 % or Greater Left Ventricular Function to be assessed after discharge: No JHON Inhibitor Prescribed: No Contraindication/Reason for not providing: Not warranted Beta-Abiel Prescribed: Carvedilol Angiotensin II Receptor Abiel Prescribed: No Contraindication/Reason for not providing: Not warranted AnticoagulationTherapy for Atrial Fibrillation/Atrialflutter: No Contraindication/Reason for not providing: Not warranted Aldosterone Antagonist Prescribed: No Contraindication/Reason for not providing: Not warranted Hydralazine Nitrate Prescribed: No Contraindication/Reason for not providing: Not warranted Implantable Cardioverter Defibrillator Therapy: No Contraindication/Reason for not providing: Not warranted Cardiac Resynchronization Therapy Prescribed: No Contraindication/Reason for not providing: Not warranted Will be discharged to: Detention Facility Follow Up Date (must be within 7 days from discharge): 07/10/16 Follow Up Time: 09:00 <Yeyo Hendrickson - Last Filed: 07/09/16 08:00> Provider - Provider Date of Admission: 07/02/16 17:31 Attending physician: Charles Cox MD Hospital Course - Lab Results Lab Results: Micro Results 07/08/16 Unknown Rectum Ova and Parasite Concentrate Exam - Final 07/06/16 09:23 Body Fluid - Bronchial Washing Gram Stain - Final 07/06/16 09:23 Body Fluid - Bronchial Washing Body Fluid Culture - Preliminary Gram Positive Cocci 07/06/16 09:24 Other: Please Indicate Mycobacterial Culture - Preliminary 07/04/16 09:28 Sputum Gram Stain - Final 07/04/16 09:28 Sputum Sputum Culture - Final NORMAL ORAL SY 07/04/16 01:33 Urine,Clean Catch Urine Culture - Final No Growth (<1,000 CFU/ML) Most Recent Lab Values WBC 10.1 K/uL (4.8-10.8) 07/08/16 05:53 RBC 3.51 Mil/uL (3.80-5.20) L 07/08/16 05:53 Hgb 9.2 g/dL (11.0-16.0) L 07/08/16 05:53 Hct 27.7 % (34.0-47.0) L 07/08/16 05:53 MCV 78.8 fL (81.0-99.0) L 07/08/16 05:53 MCH 26.1 pg (27.0-31.0) L 07/08/16 05:53 MCHC 33.2 g/dL (33.0-37.0) 07/08/16 05:53 RDW 16.3 % (11.5-14.5) H 07/08/16 05:53 Plt Count 330 K/uL (130-400) 07/08/16 05:53 MPV 7.3 fL (7.2-11.7) 07/08/16 05:53 Neut % (Auto) 45.1 % (50.0-75.0) L 07/08/16 05:53 Lymph % (Auto) 40.1 % (20.0-40.0) H 07/08/16 05:53 [place] % (Auto) 7.7 % (0.0-10.0) 07/08/16 05:53 Eos % (Auto) 6.5 % (0.0-4.0) H 07/08/16 05:53 Baso % (Auto) 0.6 % (0.0-2.0) 07/08/16 05:53 Neut # 4.6 K/uL (1.8-7.0) 07/08/16 05:53 Lymph # 4.1 K/uL (1.0-4.3) 07/08/16 05:53 [place] # 0.8 K/uL (0.0-0.8) 07/08/16 05:53 Eos # 0.7 K/uL (0.0-0.7) 07/08/16 05:53 Baso # 0.1 K/uL (0.0-0.2) 07/08/16 05:53 PT 13.6 SECONDS (9.7-12.2) H 07/06/16 07:51 INR 1.2 07/06/16 07:51 Puncture Site Rra 07/02/16 18:05 pCO2 31 mm/Hg (35-45) L 07/02/16 18:05 pO2 82 mm/Hg (80-100) 07/02/16 18:05 HCO3 25.2 mmol/L (21-28) 07/02/16 18:05 ABG pH 7.48 (7.35-7.45) H 07/02/16 18:05 ABG Total CO2 24.1 mmol/L (22-28) 07/02/16 18:05 ABG O2 Saturation 98.6 % (95-98) H 07/02/16 18:05 ABG Base Excess 0.4 mmol/L (-2.0-3.0) 07/02/16 18:05 Jhon Test Pos 04/02/17 18:05 ABG Potassium 3.5 mmol/L (3.6-5.2) L 07/02/16 18:05 A-a O2 Difference 29.0 mm/Hg 07/02/16 18:05 Respiratory Index 0.4 07/02/16 18:05 Sodium 140.0 mmol/l (132-148) 07/02/16 18:05 Chloride 113.0 mmol/L (98-107) H 07/02/16 18:05 Glucose 133 mg/dl (65-105) H 07/02/16 18:05 Lactate 0.5 mmol/L (0.7-2.1) L 07/02/16 18:05 FiO2 21.0 % 07/02/16 18:05 Sodium 149 mmol/L (132-148) H 07/08/16 05:53 Potassium 3.4 mmol/L (3.6-5.2) L 07/08/16 05:53 Chloride 104 mmol/L (98-107) 07/08/16 05:53 Carbon Dioxide 22 mmol/L (22-30) 07/08/16 05:53 Anion Gap 26 (10-20) H 07/08/16 05:53 BUN 20 mg/dL (7-17) H 07/08/16 05:53 Creatinine 1.3 MG/DL (0.7-1.2) H 07/08/16 05:53 Est GFR ( Amer) 48 07/08/16 05:53 Est GFR (Non-Af Amer) 40 07/08/16 05:53 POC Glucose (mg/dL) 107 mg/dL (65-110) 07/08/16 16:36 Random Glucose 115 mg/dL (65-105) H 07/08/16 05:53 Hemoglobin A1c 6.6 % (4.2-6.5) H 07/03/16 06:46 Calcium 8.5 mg/dl (8.6-10.4) L 07/08/16 05:53 Phosphorus 3.8 mg/dL (2.5-4.5) 07/08/16 05:53 Magnesium 1.8 mg/dL (1.6-2.3) 07/08/16 05:53 Total Bilirubin 0.6 mg/dL (0.2-1.3) 07/08/16 05:53 AST 31 U/L (14-36) 07/08/16 05:53 ALT 35 U/L (9-52) 07/08/16 05:53 Alkaline Phosphatase 67 U/L (38-126) 07/08/16 05:53 Troponin I < 0.0120 ng/mL (0.00-0.120) 07/02/16 15:48 NT-Pro-B Natriuret Pep 2150 pg/mL (0-900) H 07/02/16 15:48 Total Protein 6.6 g/dL (6.3-8.3) 07/08/16 05:53 Albumin 3.4 g/dL (3.5-5.0) L 07/08/16 05:53 Globulin 3.2 gm/dL (2.2-3.9) 07/08/16 05:53 Albumin/Globulin Ratio 1.1 (1.0-2.1) 07/08/16 05:53 Triglycerides 86 mg/dL (0-149) 07/03/16 06:46 Cholesterol 65 mg/dL (0-199) 07/03/16 06:46 LDL Cholesterol Direct < 30 mg/dL (0-129) 07/03/16 06:46 HDL Cholesterol 23 mg/dL (30-70) L 07/03/16 06:46 Free T4 0.97 ng/dL (0.78-2.19) 07/03/16 06:46 TSH 3rd Generation 1.20 mIU/L (0.46-4.68) 07/03/16 06:46 Arterial Blood Potassium 3.5 mmol/L (3.6-5.2) L 07/02/16 18:05 Urine Color Yellow (YELLOW) 07/02/16 17:16 Urine Clarity Hazy (Clear) 07/02/16 17:16 Urine pH 6.0 (5.0-8.0) 07/02/16 17:16 Ur Specific [place] 1.012 (1.003-1.030) 07/02/16 17:16 Urine Protein 1+ mg/dL (NEGATIVE) H 07/02/16 17:16 Urine Glucose (UA) Normal mg/dL (Normal) 07/02/16 17:16 Urine Ketones Negative mg/dL (NEGATIVE) 07/02/16 17:16 Urine Blood Negative (NEGATIVE) 07/02/16 17:16 Urine Nitrate Negative (NEGATIVE) 07/02/16 17:16 Urine Bilirubin Negative (NEGATIVE) 07/02/16 17:16 Urine Urobilinogen Normal mg/dL (0.2-1.0) 07/02/16 17:16 Ur Leukocyte Esterase Trace Margarita/uL (Negative) 07/02/16 17:16 Urine WBC (Auto) 8 /hpf (0-5) H 07/02/16 17:16 Urine RBC (Auto) 2 /hpf (0-3) 07/02/16 17:16 Ur Squamous Epith Cells 18 /hpf (0-5) H 07/02/16 17:16 Urine Bacteria Many (<OCC) H 07/02/16 17:16 Stool Leukocytes, Qual Positive (NEGATIVE) H 07/05/16 Unknown C. difficile Ag & Toxin Negative (NEGATIVE) 07/05/16 Unknown Influenza Typ A,B (EIA) Negative for flu a/b (NEGATIVE) 07/04/16 16:10 Ur L.pneumophila Ag Negative (NEGATIVE) 07/03/16 06:00 Mycoplasma pneumon IgM Negative (NEGATIVE) 07/03/16 06:46 Attending/Attestation - Attestation I have personally seen and examined this patient.: Yes I have fully participated in the care of the patient.: Yes I have reviewed all pertinent clinical information, including history, physical exam and plan: Yes Notes (Text): Medical attending: Patient was seen and examined by me, agree with the above note by center medical director. The patient reported that her breathing was stable, she did not have any chest pain or palpitations, she is not coughing excessively. As documented before she' s been getting some IV Lasix and also completed a bronchoscopy. Some of the early results of the bronchoscopy have been negative but she's can have to follow-up with pulmonology for further results. She has been a lot of cheerful and happy affect as of recently. In the meantime the patient will be discharged and she'll be going back to her shelter Thank you very much, Yeyo Hendrickson
== END 2016-07-08 19:30 | DRG 166 ==
LOC: C.ER 14:21 → C.9E 17:31 → C.6T 17:44
PROVIDERS: ADMIT Internal Medicine; ATTEND Internal Medicine
PROC: 0BBD8ZX Excision of Right Middle Lung Lobe, Via Natural or Artificial Opening Endoscopic, Diagnostic (ICD-10-PCS; principal; 2016-07-06 08:15)
DX: J18.9 Pneumonia, unspecified organism (principal); I50.21 Acute systolic (congestive) heart failure; R04.2 Hemoptysis; J44.9 Chronic obstructive pulmonary disease, unspecified; E11.9 Type 2 diabetes mellitus without complications; D64.9 Anemia, unspecified; J98.11 Atelectasis; R55 Syncope and collapse; W18.30XA Fall on same level, unspecified, initial encounter; E78.5 Hyperlipidemia, unspecified; I11.0 Hypertensive heart disease with heart failure; R91.8 Other nonspecific abnormal finding of lung field; D72.829 Elevated white blood cell count, unspecified; R53.1 Weakness; J45.909 Unspecified asthma, uncomplicated; Z90.49 Acquired absence of other specified parts of digestive tract; Z87.891 Personal history of nicotine dependence; Z86.718 Personal history of other venous thrombosis and embolism; Y92.008 Other place in unspecified non-institutional (private) residence as the place of occurrence of the external cause

== ENCOUNTER 2016-07-20 01:10 | Emergency (ER) | payer MEDICARE, MEDICAID ==
[2016-07-20] MEDS ORDERED: Lidocaine 1% Inj (20ml) ONE (02:39)
--- NOTE | 2016-07-20 03:05 | C.PDOC ---
History Of Present Illness 76 y/o female sent to the ER from [facility] after patient was found on the floor. As per EMS, DIRECTOR OF ATHLETICS heard a thump prior to finding patient on the floor. Patient presents with facial lacerations. Unsure of LOC. Patient unable to give full history due to clinical condition. - HPI Time Seen by Provider: 07/20/16 02:05 Chief Complaint (Nursing): Trauma History Per: Patient, EMS History/Exam Limitations: clinical condition Injury Occurred (Timing): Just Before Arrival Location Of Injury: Anterior: Face Associated Symptoms: Other (unsure of LOC) Recent travel outside of the [place]: No Past Medical History Reviewed: Historical Data, Nursing Documentation, Vital Signs Vital Signs: Last Vital Signs Temp 98.2 F 07/20/16 06:11 Pulse 79 07/20/16 06:11 Resp 20 07/20/16 06:11 BP 149/82 07/20/16 06:11 Pulse Ox 98 07/20/16 07:05 - Medical History PMH: Anemia, Anxiety, Asthma, COPD, Dementia, Deep Vein Thrombosis, HTN, Hypercholesterolemia Surgical History: Appendectomy, Cholecystectomy - [facility] Procedures EXCISION OF RIGHT MIDDLE LUNG LOBE, ENDO, DIAGN (07/02/16) Family History: States: Unknown Family Hx - Social History Hx Alcohol Use: No Hx Substance Use: No - Immunization History Hx Tetanus Toxoid Vaccination: No Hx Influenza Vaccination: No Hx Pneumococcal Vaccination: No Review Of Systems Review Of Systems: ROS cannot be obtained secondary to pt's inabilty to answer questions. Physical Exam - Physical Exam Appears: Non-toxic, Other (Alert, awake, not oriented - at baseline, as per NH. Verbal. ) Skin: Warm, Dry Head: Normacephalic, Swelling (minimal to nasal bones with eccymosis at the tip of nose, minimal tenderness left masilla, no periorbital swelling, ecchymosis), Laceration (1.0 cm through and through laceration to mid upper lip. 0.5 cm laceration to lower lip, buccal aspect.) Eye(s): bilateral: PERRL, EOMI Ear(s): Bilateral: Normal Nose: Normal Teeth: Edentulous (upper ), Other (Lower teeth intact, with no signs of injury or fracture) Gingiva: No Bleeding Throat: Normal, No Erythema, No Exudate Neck: No Midline Cervical Tenderness, No Paracervical Tenderness, No Step Off Deformity, Supple Chest: Symmetrical Cardiovascular: Rhythm Regular Respiratory: Normal Breath Sounds, No Rales, No Rhonchi, No Wheezing Gastrointestinal/Abdominal: Soft, No Tenderness, No Guarding, No Rebound Back: Normal Inspection, No Vertebral Tenderness, No Paraspinal Tenderness Extremity: Normal ROM, No Tenderness, Capillary Refill (< 2 sec. ), No Deformity , Other (abrasion to anterior right knee, full ROM) Extremity: Bilateral: Normal Color And Temperature ED Course And Treatment O2 Sat by Pulse Oximetry: 98 (RA) Pulse Ox Interpretation: Normal - CT Scan/US CT Head Other Rad Studies (CT/US): Read By Radiologist, Radiology Report Reviewed CT/US Interpretation: IMPRESSION: Suggest clinical correlation for possible fracture of the nasal bones. No fractures of the calvarium. No intracranial hemorrhage. No abnormality suspicious for acute stroke by noncontrast head CT. If there is clinical suspicion for. stroke, please note that other modalities are considered to be more sensitive than noncontrast head. CT. CT MAX/FACE Other Rad Studies (CT/US): Read By Radiologist, Radiology Report Reviewed CT/US Interpretation: Accession No. : [id number]. Patient Name / ID : SEAN ANGEL / [id number]. Exam Date : 07/20/2016 06:22:47 ( Approved ). Study Comment : Sex / Age : F / 76Y. Creator : ANN. LESLEY Dictator : Loin Puller : Data Capture Clerk : ANN. LESLEY Approver2 : Report Date : 07/20/2016 06: 49:00. My Comment : . [facility] Division of Radiology. [address] [place], [place] [id number]. Tel. no. . . . Patient Name: JEANNE ESTRADA . Pt. Address: [address] [place] [address]. Rec #: [id number]. [place] [address]: Niki Perez PA-C. Pt Phone: Order Location: [facility]. : 1940 Female Age: 76 Order #: [id number]. Reason for exam: right maxilla and nasal tenderness, trauma. . . . . . CT Scan. . . MAXILLOFACIAL W/O CONTRAST Exam Date: . . This imaging exam was performed at [facility]. . . EXAM: CT Maxillofacial Without Intravenous Contrast. . CLINICAL HISTORY: 76 years old , female; Pain; Maxilla pain and nose pain and other: Tung. swelling; Additional info: Right maxilla and nasal tenderness, trauma. . TECHNIQUE: Axial computed tomography images of the face without intravenous contrast. Coronal and sagittal reformatted images were created and reviewed. . EXAM DATE /TIME: 07/20/2016 4:41 AM. . COMPARISON: CT - HEAD W/O CONTRAST 07/20/2016 3: 23:43 AM. . FINDINGS: Bones/joints: Mildly depressed fracture right nasal bone. Degenerative. changes cervical spine. Soft tissues: Mild soft tissue emphysema right side of the nose. . Orbits: Both globes, optic nerves and extraocular muscles appear symmetrical. Sinuses: Mucosal thickening ethmoid sinus. No air-fluid levels. Nasopharynx: Fluid in anterior nasal passage. . IMPRESSION: Mildly depressed fracture right nasal bone. . Dictated By: Kaitlyn Cason. Dictated Date/Time: 07/20/16648. Signed By: MD Kaitlyn Cason. Date Signed: 07/20/16648. Transcribed By: [facility]. Transcribe Date/Time: 648. AATP02/MT Progress Note: Lacerations repaired by me, patient tolerated procedures well. CT head ordered and reviewed. Pt remains alert and awake in ED , VSS. [facility] with PO abx and head injury precautions . Laceration - Laceration Repair Upper Lip Wound Length (In cm): 1.0; 0.5 Description Of Wound: Linear Anesthesia: Lidocaine 1% Wound Closure: Suture (#4 -6.0 nylon upper lip. #4 -5.0 Vicryl internal, lower, and upper lips. ) Suture Technique And Material Used: Interrupted, Nylon, Vicryl Wound Complexity: Simple (Pt tolerated well) Disposition Counseled Patient/Family Regarding: Diagnosis, Need For Followup - Disposition Referrals: Amador Dudley MD [Non-Staff] - Disposition Time: 07:05 Condition: STABLE Additional Instructions: Please follow up with pMD Take meds as directed Suture removal of upper lip in 7 days Observe pts for head injury precautions Return to ER if lethargy, vomiting, severe headache, dizziness or worse Prescriptions: Amoxicillin/Clavulanate [Augmentin 500 MG-125 MG] 1 tab PO TID #21 tab Instructions: Head Injury (ED), Care For Your Absorbable Stitches (ED), Nasal Fracture (ED) - Clinical Impression Clinical Impression: Head injury due to trauma, Lip laceration, Nasal fracture - Scribe Statement The provider has reviewed the documentation as recorded by the Spike Eldridge Provider Scribe Attestation: All medical record entries made by the Spike were at my direction and personally dictated by me. I have reviewed the chart and agree that the record accurately reflects my personal performance of the history, physical exam, medical decision making, and the department course for this patient. I have also personally directed, reviewed, and agree with the discharge instructions and disposition.
--- NOTE | 2016-07-20 04:17 | CT ---
EXAM: CT Head Without Intravenous Contrast CLINICAL HISTORY: 76 years old, female; Pain and injury or trauma; Fall; Initial encounter; Burn; Headache; Additional info: Fall, head injury TECHNIQUE: Axial computed tomography images of the head/brain without intravenous contrast. EXAM DATE/TIME: Exam ordered 07/20/2016 2:07 AM COMPARISON: CT - HEAD W/O CONTRAST 07/02/2016 3:42:52 PM FINDINGS: Brain: No intracranial hemorrhage. Ventricles appear concordant with sulci. There is extensive streak artifact which does limit evaluation for stroke. However, there is no apparent change in comparison to the relatively recent previous CT. There is redemonstration of periventricular hypoattenuation in keeping with chronic small vessel changes. No edema. Ventricles: See above. Bones/joints: There is soft tissue opacification of the anterior nasal passages, and there is suggestion of possible incompletely imaged fracture of the nasal bone. Zygomatic arches are intact. Soft tissues: Unremarkable. Vasculature: Atherosclerotic changes of the bilateral internal carotid arteries. Sinuses: There is mild patchy disease of the ethmoid sinuses. No air-fluid levels. Mastoid air cells: Mastoid air cells bilaterally appear clear and without change. Other findings: There is comparison to previous head CT dated July 10, 2016, which showed no acute findings. Pterygoid plates are intact. IMPRESSION: Suggest clinical correlation for possible fracture of the nasal bones. No fractures of the calvarium. No intracranial hemorrhage. No abnormality suspicious for acute stroke by noncontrast head CT. If there is clinical suspicion for stroke, please note that other modalities are considered to be more sensitive than noncontrast head CT. Please note some limitations to evaluation at the skull base particularly, related to streak and slight motion.
--- NOTE | 2016-07-20 06:50 | CT ---
EXAM: CT Maxillofacial Without Intravenous Contrast CLINICAL HISTORY: 76 years old, female; Pain; Maxilla pain and nose pain and other: Tung swelling; Additional info: Right maxilla and nasal tenderness, trauma TECHNIQUE: Axial computed tomography images of the face without intravenous contrast. Coronal and sagittal reformatted images were created and reviewed. EXAM DATE/TIME: 07/20/2016 4:41 AM COMPARISON: CT - HEAD W/O CONTRAST 07/20/2016 3:23:43 AM FINDINGS: Bones/joints: Mildly depressed fracture right nasal bone. Degenerative changes cervical spine. Soft tissues: Mild soft tissue emphysema right side of the nose. . Orbits: Both globes, optic nerves and extraocular muscles appear symmetrical. Sinuses: Mucosal thickening ethmoid sinus. No air-fluid levels. Nasopharynx: Fluid in anterior nasal passage. IMPRESSION: Mildly depressed fracture right nasal bone.
[2016-07-20 07:55] VITALS: BP 144/67; PULSE 74; RESP 16; TEMP 98.7; O2SAT 97
== END 2016-07-20 08:36 ==
LOC: C.ER 01:10
DX: S01.511A Laceration without foreign body of lip, initial encounter (principal); S02.2XXA Fracture of nasal bones, initial encounter for closed fracture; W18.30XA Fall on same level, unspecified, initial encounter; Y92.129 Unspecified place in nursing home as the place of occurrence of the external cause